=== PATIENT | male | born 1995 | race Caucasian/White ===

== ENCOUNTER → 2017-09-23 19:15 | Emergency (ER) | payer MEDICAID ==
[~2017-09-23 19:15] MED LIST: Acetaminophen TAB* 325 MG PO ONE; Ibuprofen TAB* 600 MG PO ONE
--- NOTE | 2017-09-23 20:33 | RAD ---
Indication: Pain on deep inspiration post fall. Comparison: December 19, 2010 Technique: PA chest and 6 dedicated bilateral rib views. Report: Negative for rib fracture, pulmonary contusion, pleural effusion, or pneumothorax. The heart, pulmonary vasculature, and mediastinal contours are unremarkable. IMPRESSION: Negative exam.
--- NOTE | 2017-09-23 21:09 | ED ---
Adult Trauma - HPI Summary HPI Summary: Complains of right side chest wall pain, right upper arm pain S/P arrest this evening. Patient was running from [facility] and fell, with subsequent contact when vice squad police officer engaged and arrested patient. Denies head injury, LOC, facial trauma or neck pain, back pain, bilateral lower extremity pain, left upper extremity pain, abdominal pain, SOB. Ankle history of anxiety. - History of Current Complaint Chief Complaint: EDFlankPain Stated Complaint: FLANK PAIN Time Seen by Provider: 09/23/17 19:32 Hx Obtained From: Patient Mechanism of Injury: Blunt Trauma, Fall Ambulatory at the Scene: Yes Loss of Consciousness: no loss of consciousness Pain Intensity: 5 - Allergy/Home Medications Allergies/Adverse Reactions: Allergies Allergy/AdvReac Type Severity Reaction Status Date / Time MS Penicillins [Penicillins] Allergy Intermediate Rash Unverified 09/27/13 02:16 PMH/Surg Hx/FS Hx/Imm Hx Endocrine/Hematology History: Denies: Hx Diabetes, Hx Thyroid Disease Cardiovascular History: Denies: Hx Hypertension Respiratory History: Denies: Hx Asthma, Hx Chronic Obstructive Pulmonary Disease (COPD) GI History: Denies: Hx Ulcer Sensory History: Reports: Hx Contacts or Glasses Denies: Hx Hearing Aid Opthamlomology History: Reports: Hx Contacts or Glasses Psychiatric History: Reports: Hx Depression - ON MEDS - Surgical History Surgery Procedure, Year, and Place: RIGHT KNEE, 2008, [facility] Hx Anesthesia Reactions: No Infectious Disease History: No Infectious Disease History: Denies: Hx Clostridium Difficile, Hx Hepatitis, Hx Human Immunodeficiency Virus (HIV), Hx of Known/Suspected MRSA, Hx Shingles, Hx Tuberculosis, Hx Known/ Suspected VRE, Hx Known/Suspected VRSA, History Other Infectious Disease, Traveled Outside the [place] in Last 30 Days - Family History Known Family History: Positive: Hypertension - Social History Alcohol Use: None Substance Use Type: Reports: None Substance Use Comment - Amount & Last Used: " I do all of them" Smoking Status (MU): Heavy Every Day Tobacco Smoker Type: Cigarettes Amount Used/How Often: 1 PPD Length of Time of Smoking/Using Tobacco: 5+ years Have You Smoked in the Last Year: Yes Review of Systems Constitutional: Negative Eyes: Negative ENT: Negative Cardiovascular: Negative Respiratory: Negative Gastrointestinal: Negative Genitourinary: Negative Musculoskeletal: Negative Skin: Negative Neurological: Negative Psychological: Normal All Other Systems Reviewed And Are Negative: Yes Physical Exam - Summary Physical Exam Summary: No evidence of ecchymosis, deformity, swelling to right side chest wall or right flank or right upper arm. Patient is handcuffed but moves right arm freely. No evidence of trauma to face, head, teeth, tongue full range of motion of neck and jaw. Triage Information Reviewed: Yes Vital Signs On Initial Exam: Initial Vitals Temp Pulse Resp BP Pulse Ox 98.6 F 110 18 132/89 95 09/23/17 20:41 09/23/17 20:41 09/23/17 20:41 09/23/17 20:41 09/23/17 20:41 Vital Signs Reviewed: Yes Appearance: Positive: Well-Appearing Skin: Positive: Warm Head/Face: Positive: Normal Head/Face Inspection Eyes: Positive: Normal Neck: Positive: Supple Respiratory/Lung Sounds: Positive: Clear to Auscultation Cardiovascular: Positive: Normal Abdomen Description: Positive: Nontender Musculoskeletal: Positive: Normal Neurological: Positive: Normal Psychiatric: Positive: Normal AVPU Assessment: Alert - [place] Coma Scale Best Eye Response: 4 - Spontaneous Best Motor Response: 6 - Obeys Commands Best Verbal Response: 5 - Oriented Coma Scale Total: 15 Diagnostics - Vital Signs Vital Signs Temp Pulse Resp BP Pulse Ox 09/23/17 20:41 98.6 F 110 18 132/89 95 - Laboratory Lab Statement: Any lab studies that have been ordered have been reviewed, and results considered in the medical decision making process. - Radiology ribs/chest Xray Interpretation: No Acute Changes Radiology Interpretation Completed By: Radiologist Adult Trauma Course/Dx - Diagnoses Provider Diagnoses: Rib pain on right side, Right upper limb pain Discharge - Sign-Out/Discharge Documenting (check all that apply): Discharge/Admit/Transfer - Discharge Plan Condition: Stable Disposition: LAW ENFORCEMENT/COURT Patient Education Materials: Musculoskeletal Pain (ED), Chest Wall Pain (ED) Referrals: No Primary Care Phys,NOPCP [Primary Care Provider] - Additional Instructions: Follow-up with primary care. Return to the ED for any new or worsening symptoms - Billing Disposition and Condition Condition: STABLE Disposition: LAW
[2017-09-23 22:09] VITALS: BP 133/103
== END ==
LOC: ED 19:15
DX: R07.81 Pleurodynia (principal); M79.621 Pain in right upper arm; F32.9 Major depressive disorder, single episode, unspecified; Z88.0 Allergy status to penicillin; F17.210 Nicotine dependence, cigarettes, uncomplicated
CPT/HCPCS: 71111; 99282; A9270-GY

== ENCOUNTER 2018-05-26 18:31 | Emergency (ER) | payer OTHER ==
[2018-05-26 18:44] VITALS: BP 127/73
--- NOTE | 2018-05-26 18:45 | UC ---
Skin Complaint HPI - HPI Summary HPI Summary: 22 yo male presents with left lower jaw/left neck complaints. He tells me that he is an IV drug user, as well as many other illicit substances. He is planned to go to rehab in [place] tomorrow morning. Yesterday he began to have swelling and pain in his left lower jaw. He took a needle and poked it and drained "thick white and yellow shit" and "crystals". Today the swelling has spread and redness is going down his neck. His mom had po amoxicillin at home so he took two tablets of this and came to . He is able to eat and drink. Denies fever. - History of Current Complaint Chief Complaint: [facility] Time Seen by Provider: 05/26/18 18:44 Stated Complaint: SOFT TISSUE Hx Obtained From: Patient Onset Severity: Severe Current Severity: Severe Pain Intensity: 8 Pain Scale Used: 0-10 Numeric - Allergy/Home Medications Allergies/Adverse Reactions: Allergies Allergy/AdvReac Type Severity Reaction Status Date / Time No Known Allergies Allergy Verified 05/26/18 19:56 Home Medications: Home Medications NK [No Home Medications Reported] 05/26/18 [History Confirmed 05/26/18] PMH/Surg Hx/FS Hx/Imm Hx - Additional Past Medical History Additional PMH: None - Surgical History Surgical History: Yes Surgery Procedure, Year, and Place: RIGHT KNEE, 2008, [facility]. nasal surgery - Family History Known Family History: Positive: Hypertension - Social History Alcohol Use: None Substance Use Type: Cocaine, Heroin, Marijuana, Synthetic Drugs, Prescribed Substance Use Comment - Amount & Last Used: Xanax, Meth, mushrooms Smoking Status (MU): Heavy Every Day Tobacco Smoker Type: Cigarettes Amount Used/How Often: 1 PPD Length of Time of Smoking/Using Tobacco: 5+ years Have You Smoked in the Last Year: Yes - Immunization History Most Recent Influenza Vaccination: none Most Recent Pneumonia Vaccination: none Review of Systems All Other Systems Reviewed And Are Negative: Yes Constitutional: Positive: Negative Skin: Positive: Other - Abscess left jaw Respiratory: Positive: Negative Cardiovascular: Positive: Negative Neurovascular: Positive: Negative Neurological: Positive: Negative Psychological: Positive: Negative Physical Exam - Summary Physical Exam Summary: GENERAL: NAD. WDWN. No pain distress. SKIN: LEFT lower jaw: Moderate edema with erythema and warmth. Erythema extending down left neck to clavicle. Moderate TTP. CHEST: No accessory muscle use. Breathing comfortably and in no distress. CV: Pulses intact. Cap refill <2seconds NEURO: Alert. PSYCH: Age appropriate behavior. Triage Information Reviewed: Yes Vital Signs: Initial Vital Signs Temp 97.9 F 05/26/18 18:40 Pulse 92 05/26/18 18:40 Resp 18 05/26/18 18:40 BP 127/73 05/26/18 18:40 Pulse Ox 99 05/26/18 18:40 Vital Signs Reviewed: Yes Course/Dx - Course Course Of Treatment: Given his IV drug use and rapid progression of symptoms - recommend pt be further evaluated in the ED as I suspect he will need imaging and/or IV antibiotics with possible I&D. He was agreeable to this and mom will drive him. - Diagnoses Provider Diagnosis: Abscess of left jaw Discharge - Sign-Out/Discharge Documenting (check all that apply): Patient Departure All imaging exams completed and their final reports reviewed: No Studies - Discharge Plan Condition: Stable Disposition: HOME-RECOMMEND TO ED Referrals: No Primary Care Phys,NOPCP [Primary Care Provider] - Additional Instructions: Please go to the ER for further evaluation of your abscess - Billing Disposition and Condition Condition: STABLE Disposition: Home-Recommend to ED - Attestation Statements Provider Attestation: Per institutional requirements, I have reviewed the chart, however, I was not consulted specifically or made aware of this patient by the midlevel provider. I did not personally evaluate, interact with , or disposition this patient.
--- OUTSIDE RECORDS SUMMARY | 2018-05-26 18:59 | XMS REPORT | Continuity of Care Document ---
:1995 External Reference #:[id number] Author Name Gopi Bentley, OD Address [address] [place] [address] Care Team Providers Name Role Phone Lisha De Souza MD Care Team Information Garment Supervisor Unavailable Lisha De Souza MD Primary Care Physician Unavailable Payers Type Date Identification Numbers Payment Provider Subscriber Policy Number: [id number] [facility] Ziyad Bautista PayID: [id number] [address] [place] [address] Advance Directives Description No Information Available Problems Description No Information Family History Date Family Member(s) Problem(s) Comments General Glasses General Diabetes General Heart Disease Father Glasses Mother Heart Disease Mother Glasses Social History Type Date Description Comments Sex Unknown ETOH Use Occasionally consumes alcohol Tobacco Use Start: Unknown Heavy tobacco smoker (more than 10 cigarettes/day) Smoking Status Reviewed: 05/06/18 Heavy tobacco smoker (more than 10 cigarettes/day) Allergies, Adverse Reactions, Alerts Description No Known Drug Allergies Medications Medication Date Status Form Strength Qnty SIG Indications Ordering Provider Gabapentin 0 Active Tablets 600mg Take 1 Unknown 000 Tablet By Mouth Three Times Daily Suboxone Active Film 8-2mg Unknown 000 Methylphenidate Active Tablets 36mg Unknown Hydrochloride ER 000 ER 24HR Mirtazapine 0 Active Tablets 15mg Unknown 000 Ropinirole HCL 0 Active Tablets 1mg Unknown 000 Divalproex Sodium 0 Active Tablets 500mg Unknown [address] Immunizations Description No Information Available Vital Signs Date Vital Result Comment 05/06/2018 2:52pm Intraocular Pressure Right Eye 16 mmHg Intraocular Pressure Left Eye 16 mmHg Results Description No Information Available Procedures Date Code Description Status 05/06/2018 35350 Refraction Completed 05/06/2018 33055 Eye Exam New Comprehensive Completed Encounters Description No Information Available Plan of Treatment 05/06/2018 - Gopi Bentley, ODH52.223 Regular astigmatism, bilateralFollow up: yearly full, sooner PRNS00.11xA Contusion of right eyelid and periocular area, init encntrFollow up:yearly full, sooner PRN
== END 2018-05-26 19:05 | disposition home health service (06) ==
LOC: UCEAST 18:31
DX: M27.2 Inflammatory conditions of jaws (principal); F17.210 Nicotine dependence, cigarettes, uncomplicated
CPT/HCPCS: 99202; G0463

== ENCOUNTER 2018-05-26 19:49 | Inpatient (IN) | payer OTHER ==
[2018-05-26] MEDS ORDERED: Vancomycin(*) 1,000 MG in NS 0.9% 250 ML* 250 ML IVPB ONE (20:30)
[2018-05-26] MEDS ORDERED: Piperacillin/Tazobac ADVAN(*) 3.375 GM in NS 0.9% 100 ML* 100 ML IVPB ONE (20:30)
--- NOTE | 2018-05-26 20:34 | ED ---
Skin Complaint - HPI Summary HPI Summary: This patient is a 22 year old M [facility] a jaw abscess to the left jaw line that began yesterday. He states he believe it is from crystal meth use and believes he has squeezed crystal meth from the lump. The patient rates the pain 8/10 in severity. Patient denies fever. Pt states he does intravenously use meth and heroin but states he only injects into AC fossa. He did drain it himself and states there was thick yellow discharge. He states he has detox in the am and cannot be admitted. - History of Current Complaint Chief Complaint: EDRashSkinAbscess Time Seen by Provider: 05/26/18 20:07 Stated Complaint: FACIAL SWELLING Hx Obtained From: Patient Onset/Duration: Started Days Ago, Still Present Timing: Constant Onset Severity: Moderate Current Severity: Moderate Pain Intensity: 8 Pain Scale Used: 0-10 Numeric Skin Location: Face Character: Pain, Redness, Painful Associated Signs & Symptoms: Negative - fever - Additional Pertinent History [facility] Physician[facility] - Allergy/Home Medications Allergies/Adverse Reactions: Allergies Allergy/AdvReac Type Severity Reaction Status Date / Time No Known Allergies Allergy Verified 05/26/18 19:56 PMH/Surg Hx/FS Hx/Imm Hx Endocrine/Hematology History: Denies: Hx Diabetes, Hx Thyroid Disease Cardiovascular History: Denies: Hx Hypertension Respiratory History: Denies: Hx Asthma, Hx Chronic Obstructive Pulmonary Disease (COPD) GI History: Denies: Hx Ulcer Sensory History: Reports: Hx Contacts or Glasses Denies: Hx Hearing Aid Opthamlomology History: Reports: Hx Contacts or Glasses Neurological History: Reports: Other Neuro Impairments/Disorders - hx multiple concussions Psychiatric History: Reports: Hx Anxiety, Hx Attention Deficit Hyperactivity Disorder, Hx Community Mental Health Tx, Hx of Violent Episodes Against Others, Hx Substance Abuse Denies: Hx Eating Disorder, Hx Depression, Hx Panic Disorder, Hx Post Traumatic Stress Disorder, Hx Inpatient Treatment, Hx Schizophrenia, Hx Bipolar Disorder, Hx Suicide Attempt - Surgical History Surgery Procedure, Year, and Place: RIGHT KNEE, 2008, [facility]. nasal surgery Hx Anesthesia Reactions: No Infectious Disease History: No Infectious Disease History: Reports: Hx Hepatitis Denies: Hx Clostridium Difficile, Hx Human Immunodeficiency Virus (HIV), Hx of Known/Suspected MRSA, Hx Shingles, Hx Tuberculosis, Hx Known/Suspected VRE, Hx Known/Suspected VRSA, History Other Infectious Disease, Traveled Outside the [place] in Last 30 Days - Family History Known Family History: Positive: Hypertension - Social History Alcohol Use: None Substance Use Type: Reports: Cocaine, Heroin, Marijuana, Synthetic Drugs, Prescribed Substance Use Comment - Amount & Last Used: Xanax, Meth, mushrooms Smoking Status (MU): Heavy Every Day Tobacco Smoker Type: Cigarettes Amount Used/How Often: 1 PPD Length of Time of Smoking/Using Tobacco: 5+ years Have You Smoked in the Last Year: Yes Review of Systems Negative: Fever Positive: Other - swelling, redness, raised area on the left jaw All Other Systems Reviewed And Are Negative: Yes Physical Exam - Summary Physical Exam Summary: VITAL SIGNS: Reviewed. GENERAL: Patient is a well-developed and nourished male who is lying comfortable in the stretcher. Patient is not in any acute respiratory distress. HEAD AND FACE: No signs of trauma. No ecchymosis, hematomas or skull depressions. No sinus tenderness. EYES: PERRLA, EOMI x 2, No injected conjunctiva, no nystagmus. EARS: Hearing grossly intact. Ear canals and tympanic membranes are within normal limits. MOUTH: Oropharynx within normal limits. NECK: Supple, trachea is midline, no adenopathy, no JVD, no carotid bruit, no c- spine tenderness, neck with full ROM. CHEST: Symmetric, no tenderness at palpation LUNGS: Clear to auscultation bilaterally. No wheezing or crackles. CVS: Regular rate and rhythm, S1 and S2 present, no murmurs or gallops appreciated. ABDOMEN: Soft, non-tender. No signs of distention. No rebound no guarding, and no masses palpated. Bowel sounds are normal. EXTREMITIES: FROM in all major joints, no edema, no cyanosis or clubbing. NEURO: Alert and oriented x 3. No acute neurological deficits. Speech is normal and follows commands. SKIN: there is a large area of swelling and induration that is TTP and warm on the left cheek. There is redness that extends into the neck. He has many scattered superficial ulcerations Triage Information Reviewed: Yes Vital Signs On Initial Exam: Initial Vitals Temp Pulse Resp BP Pulse Ox 99.1 F 105 16 115/95 100 05/26/18 19:54 05/26/18 19:54 05/26/18 19:54 05/26/18 19:54 05/26/18 19:54 Vital Signs Reviewed: Yes Diagnostics - Vital Signs Vital Signs Temp Pulse Resp BP Pulse Ox 05/26/18 19:54 99.1 F 105 16 115/95 100 - Laboratory Result Diagrams: 05/26/18 21:17 05/26/18 21:17 Lab Statement: Any lab studies that have been ordered have been reviewed, and results considered in the medical decision making process. - CT CT Maxillofacial CT Interpretation Completed By: Radiologist Summary of CT Findings: prominent left soft tissue facial swelling, consistent with cellulitis. No soft tissue or periodontal abscess identified. Dr. Douglas has reviewed this report. Course/Dx - Course Course Of Treatment: This patient is a 22 year old M presenting to [facility] c/o a jaw abscess to the left jaw line that began yesterday. He states he believe it is from crystal meth use and believes he has squeezed crystal meth from the lump. The patient rates the pain 8/10 in severity. Patient denies fever. Pt states he does intravenously use meth and heroin but states he only injects into AC fossa. He did drain it himself and states there was thick yellow discharge. He states he has detox in the am and cannot be admitted. Assessment/Plan: CT maxillofacial reveals, prominent left soft tissue facial swelling, consistent with cellulitis. No soft tissue or periodontal abscess identified. The patient was given toradol for pain and IV antibiotics Bloodwork was obtained. Dr saeed, hospitalist was contacted and he accepted the patient for admission. The patient is agreeable - Diagnoses Provider Diagnoses: Substance abuse, Facial cellulitis - Physician Notifications Discussed Care Of Patient With: Ramy Saeed Time Discussed With Above Provider: 23:11 Instructed by Provider To: Admit As Inpatient Discharge - Sign-Out/Discharge Documenting (check all that apply): Patient Departure - admitted - Discharge Plan Condition: Fair Disposition: ADMITTED TO [facility] Referrals: No Primary Care Phys,NOPCP [Primary Care Provider] - - Attestation Statements Document Initiated by Scribe: Yes Documenting Scribe: John Hernandez Provider For Whom Scribe is Documenting (Include Credential): Kyung Douglas MD Scribe Attestation: John Amaya , scribed for Kyung Douglas MD on 01/08/19 at 2311. Status of Scribe Document: Ready
[2018-05-26] MEDS: NS 0.9% 1000 ML*IV.FLUID IV ONE (21:07)
[2018-05-26 21:32] LABS: ABS Basophils 0 10^3/ul (0-0.2); ABS Eosinophils 0.3 10^3/ul (0-0.6); ABS Lymphocytes 2.7 10^3/ul (1.0-4.8); ABS Monocytes 0.9 10^3/ul (0-0.8); ABS Neutrophils 9.8 10^3/ul (1.5-7.7); ABS Nucleated RBC 0 10^3/ul; Eosinophil % 2.4 %; Hematocrit 41 % (42-52); Hemoglobin 13.7 g/dl (14.0-18.0); Lymphocyte % 19.8 %; Mean Corpuscular HGB Conc 34 g/dl (31-36); Mean Corpuscular Hemoglobin 30 pg (27-31); Mean Corpuscular Volume 90 fL (80-94); Mean Platelet Volume 6.8 fL (7.4-10.4); Nucleated Red Blood Cells % 0; Platelet Count 263 10^3/ul (150-450); Red Blood Count 4.53 10^6/ul (4.00-5.40); Red Cell Distribution Width 13 % (10.5-15); White Blood Count 13.9 10^3/ul (3.5-10.8)
[2018-05-26 21:43] LABS: Albumin 4.1 g/dL (3.2-5.2); Albumin/Globulin Ratio 1.8 (1-3); BUN/Creatinine Ratio 17.7 (8-20); C Reactive Protein 82.74 mg/L (<8.01); Calcium 9.4 mg/dL (8.6-10.3); EGFR Non-African American 79.7 (>60); Globulin 2.3 g/dL (2-4); Potassium 4.1 mmol/L (3.5-5.0); Total Bilirubin 0.5 mg/dL (0.2-1.0); Total Protein 6.4 g/dL (6.4-8.9)
[2018-05-26 22:02] LABS: Activated Partial Thrombo Time 29.6 seconds (26.0-36.3); INR 0.98 (0.77-1.02)
[2018-05-26] MEDS ORDERED: Iohexol 300* (CONTRAST) 10 ML SDV IV ONE (22:03)
[2018-05-26] MEDS ORDERED: Ketorolac INJ* 30 MG/ML 1 ML VIAL IV PUSH ONE (22:25)
[2018-05-26] MEDS ORDERED: Vancomycin(*) 0 MG in NS 0.9% 250 ML* 250 ML IVPB SCH (23:45)
[2018-05-26] MEDS ORDERED: Zosyn per Pharmacy* NOTE FOLLOW UP SCH (23:45)
[2018-05-27] MEDS ORDERED: Vancomycin per Pharmacy* NOTE FOLLOW UP PRN (00:23)
[2018-05-27] MEDS: NS 0.9% 1000 ML*IV.FLUID IV ONE (00:43)
[2018-05-27] MEDS: Divalproex ER TAB(*) 500 MG PO SCH ×3 (01:33→21:00)
[2018-05-27] MEDS: Nicotine PATCH 7 MG/24 HR* PATCH TRANSDERM SCH ×2 (01:34→01:36)
[2018-05-27] MEDS: ZOSYN 3.375 GM Q8H per EXTENDED INFUSION IVPB SCH ×6 (01:34→18:25)
[2018-05-27] MEDS: NS 0.9% 1000 ML* 1,000 ML IV SCH ×2 (01:34→11:59)
[2018-05-27] MEDS: HYDROmorphone INJ1* 1 MG/ML SYRINGE IV SLOW PU PRN ×5 (03:03→21:26)
[2018-05-27] MEDS: Vancomycin(*) 1,000 MG in NS 0.9% 250 ML* 250 ML IVPB SCH ×3 (05:52→22:58)
[2018-05-27 06:07] LABS: ABS Basophils 0.1 10^3/ul (0-0.2); ABS Eosinophils 0.4 10^3/ul (0-0.6); ABS Lymphocytes 2.5 10^3/ul (1.0-4.8); ABS Monocytes 0.9 10^3/ul (0-0.8); ABS Neutrophils 8.6 10^3/ul (1.5-7.7); ABS Nucleated RBC 0 10^3/ul; Eosinophil % 3.2 %; Hematocrit 39 % (42-52); Hemoglobin 13.5 g/dl (14.0-18.0); Lymphocyte % 19.9 %; Mean Corpuscular HGB Conc 35 g/dl (31-36); Mean Corpuscular Hemoglobin 31 pg (27-31); Mean Corpuscular Volume 88 fL (80-94); Mean Platelet Volume 7.2 fL (7.4-10.4); Nucleated Red Blood Cells % 0.1; Platelet Count 248 10^3/ul (150-450); Red Blood Count 4.39 10^6/ul (4.00-5.40); Red Cell Distribution Width 13 % (10.5-15); White Blood Count 12.4 10^3/ul (3.5-10.8)
--- NOTE | 2018-05-27 06:23 | HP ---
HISTORY AND PHYSICAL: DATE OF ADMISSION: 05/26/18 ADMITTING PROVIDER: Ramy Saeed MD. PRIMARY CARE PHYSICIAN: Dr. Angélica Williamson. CHIEF COMPLAINT: Left cheek pain and slight drainage in the setting of acute on chronic crystal meth and heroin use. HISTORY OF PRESENT ILLNESS: Ziyad Bautista is a 22-year-old male with past medical history of polysubstance abuse (opioids, cocaine, methamphetamine, heroin, cannabis, and cigarette smoking), bipolar disorder, and ADHD. He is accompanied by bedside by his girlfriend, Kurtis and mother, Juanita. He has been using heroin and crystal meth again for the last few months, has been not taking his psychiatric medications of Depakote, gabapentin nor his Suboxone. The day prior to admission, he developed left face and cheek swelling and increasing pain and morning of admission, an area lateral to the left chin at the lower aspect of the cheek opened up with some pus like drainage. Family had been planning on detoxification at [facility], but due to the poor weather that was postponed. He denies any fevers or chills. Kurtis notes that he has been using heroin about 4 to 5 times a day including last at around 5:30 p.m. and crystal meth last use was night prior. He has had a few days of diarrhea. Upon presentation to [facility] [place], he was found to have a leukocytosis of 13.9, a CRP of 82.7, temperature of 99.1, tachycardia of 105, meeting SIRS criteria and CT maxillofacial was performed which showed a prominent left facial soft tissue swelling consistent with cellulitis. No soft tissue or periodontal abscess was identified. He was referred to hospitalist service for admission for facial cellulitis and service. He is status post one dose of vancomycin and Zosyn in the ED and 2.4 L of normal saline, IV fluids. Both, the patient and the mother had concern about the risks for him withdrawing. He attests that he would leave the hospital if that were to happen as that could be "dope sick" in the hospital, would rather leave AMA if that were to occur. He states that he uses about 20 single bags or 0.5 g of heroin daily in his approximation. The patient says that his last HIV test was approximately in February 2018, it was negative. He gets his needles at the needle exchange. PAST MEDICAL HISTORY: 1. Polysubstance abuse with crystal meth, heroin, cocaine, opioids, cannabis, cigarette smoking. 2. Bipolar disease. 3. ADHD. 4. Prior hepatitis C infection, status post reported treatment. MEDICATIONS: He denies being compliant with any medications recently. His prescribed medications include most recently: 1. Gabapentin 600 mg b.i.d. 2. Remeron 15 mg daily. 3. Suboxone 8/2 b.i.d. 4. Depakote extended release 1000 mg each night along with clonidine 0.1 mg p.o. q.h.s. Again, he has not used any of these in months while returning to heroin and crystal meth. ALLERGIES: CEFTRIAXONE was listed as severe itching. He describes a pill that he takes that caused burning with swallowing, however. FAMILY HISTORY: Mother with coronary artery disease and stents. Father is healthy. SOCIAL HISTORY: Substance abuse with crystal meth and heroin currently and past use of cocaine. Marijuana and cigarette smoking currently. Denies alcohol use. Most recent rehab admission between 11/24/17 and 12/22/17 at [place], [place]. His medical surrogate is his mother, Juanita Ross. He desires to be a full code, although initially denied this. REVIEW OF SYSTEMS: Complete 14-point review of systems was negative, except as per HPI. He denies any headaches, nausea, vomiting, vision changes, or neck stiffness. He does attest to itching, had scabs all over his body. PHYSICAL EXAMINATION GENERAL APPEARANCE: Patient in no acute distress, but disheveled, initially asleep. VITAL SIGNS: Temperature 99.1, heart rate 105, respiratory rate 16, satting 100 % on room air, blood pressure 158/95. HEENT: Normocephalic and atraumatic. Pupils are equal, round, and reactive to light. Extraocular motions are intact. No scleral icterus. Moist mucous membranes. Excoriations to the bridge of the nose, lower forehead, small drainage. Ulcer at the lower left cheek, slight erythema at this but prominent swelling of the entire left cheek region. RESPIRATORY: Clear to auscultation bilaterally. No wheezing, rales or rhonchi. CARDIOVASCULAR: Regular rate and rhythm. No murmurs, rubs, or gallops. ABDOMEN: Soft, nontender, and nondistended. EXTREMITIES: Warm and well perfused with no peripheral edema. NEUROLOGIC: Cranial nerves II through XII intact. Moving all extremities. Oriented x3. SKIN: As mentioned, prominent excoriations and lesions throughout the thorax, thighs, arms, face where he has been scratching himself. LABORATORY DATA: White count 13.9, hemoglobin 13.7, hematocrit of 41, platelets 263, INR 0.98. Sodium 134, potassium 4.1, chloride 98, carbon dioxide 31, BUN 20, creatinine 1.13, CRP 82, AST 18, ALT 18, alk phos 66, albumin of 4.1. IMAGING: Maxillofacial CT demonstrated prominent left facial soft tissue swelling, consistent with cellulitis. No soft tissue or periodontal abscess identified. EKG: Normal sinus rhythm, QTc of 425, no ST elevations or depressions. Normal axis. ASSESSMENT AND PLAN: Ziyad Bautista is a 22-year-old with a past medical history and current daily heroin and crystal methamphetamine abuse of up to 0.5 g heroin daily along with bipolar, attention deficit hyperactivity disorder, presenting with two days of progressive left facial swelling and pain with concern for some facial cellulitis without identifiable abscess on maxillofacial CT scan. He has been admitted for cellulitis with need for IV broad-spectrum antibiotics. Continue the vancomycin and Zosyn. We will get the ID consult in the morning with Dr. Chille if he is available. Main challenge may be controlling his pain and risk for opioid withdrawals while he is here getting therapy. I am going to put him on 1.5 mg of Dilaudid every 2 hours but this may need to be increased, also consideration for methadone or buprenorphine, but I will wait till the morning, and I have put in a consult with Dr. Farnsworth and, if available PCP, Angélica Williamson. These have been placed in [facility], not called as it is currently midnight. For his bipolar disease, I am restarting his Depakote extended release 1000 mg q.h.s. For his attention deficit hyperactivity disorder, holding his Ritalin. He has not been on those, only got a few prescriptions per medication prescription monitoring program. He can eat a heart-healthy diet. He is a full code. We will follow up the blood cultures. Get a CBC daily. Continue the IV fluids. Being admitted to inpatient status. [id number]/CPS #: [id number] [facility]'S HOSPITALFahad
[2018-05-27] MEDS: Gabapentin CAP(*) 300 MG PO SCH ×2 (08:20→21:00)
[2018-05-27 08:51] LABS: Urine Appearance Clear; Urine Bilirubin Negative (Negative); Urine Blood Negative (Negative); Urine Color Colorless; Urine Glucose Negative (Negative); Urine Ketones Negative (Negative); Urine Nitrite Negative (Negative); Urine Protein Negative (Negative); Urine Specific Gravity 1.005 (1.010-1.030); Urine Urobilinogen Negative (Negative)
--- NOTE | 2018-05-27 12:02 | CONS ---
CONSULTATION REPORT: DATE OF CONSULT: 05/27/18 REQUESTING PHYSICIAN: Dr. Saeed. CONSULTING SERVICE: Infectious Disease. REASON FOR CONSULT: Facial cellulitis. IMPRESSION: 1. Left mandible cellulitis, possibly phlegmon. No abscess by CT. He does not have underlying dental issues that he knows of and no rotten or broken teeth on exam. CT does not show a periodontal abscess. He does have a small cutaneous wound with eschar, which he says crystal meth crystals are coming out of. 2. Injection drug use, heroin and meth, in brief remission. 3. Hepatitis C antibody positive. RECOMMENDATION: Agree with broad-spectrum antibiotics, vancomycin goal trough 10 to 15 and Zosyn. I expect he will need a couple of days of IV antibiotics and then conversion to oral therapy in the form of clindamycin assuming no culture data comes back and there does not seem to be anything now to culture. I discussed with him that what may be cellulitis and phlegmon now, could progress to abscess, which we will keep an eye on. HISTORY OF PRESENT ILLNESS: A 22-year-old man admitted with left facial pain and swelling for 2 days. He had chills and sweats at home as well. He does not remember any injury to the left chin, but does note crystal meth crystals are coming out of the small eschar that is there as well as many other pores in his body. There is some swelling, trismus, but no trouble with teeth that he has known about and no pain with the teeth. He had a CT that showed soft tissue swelling, no abscess, no periodontal abscess. His white count yesterday was 14, today it is 12. He is afebrile here, but had chills and sweats overnight. PAST MEDICAL HISTORY: 1. Hepatitis C antibody positive that he had been treated in the past. 2. Bipolar disorder. 3. ADHD. MEDICATIONS: 1. Depakote. 2. Gabapentin. 3. Nicotine patch. 4. Zosyn. 5. Vancomycin 1 g every 8 hours. ALLERGIES: No known drug allergies. FAMILY HISTORY: No recurrent infections. SOCIAL HISTORY: He lives in [place]. He uses IV heroin and methamphetamines. Has also used cocaine. REVIEW OF SYSTEMS: All negative except as noted above to 14-point review of systems. PHYSICAL EXAM: Vital Signs: Temperature 36, heart rate 80, respiratory rate 18 , blood pressure 151/70, oxygen saturation 98% on room air. In general, he is awake and not in distress. Neurologic: He is oriented x3, follows all commands. HEENT: There is no conjunctival hemorrhage. Oropharynx without thrush. There are no broken or obviously rotten teeth. No internal mandible tenderness to palpation. About the anterior left mandible externally, there is mild erythema and induration with a 4 mm eschar. No expressible fluid or fluctuance. Erythema extends down into the neck where there is no crepitus or fluctuance. He has mild trismus. Neck: No mass, crepitus, or fluctuance. Heart is regular rate and rhythm, without murmurs, rubs, or gallops. Lungs are clear to auscultation bilaterally. Abdomen: Soft, nontender, nondistended, with bowel sounds present. Skin: There is no splinter hemorrhage or diffuse rash. Musculoskeletal: There is no spine tenderness to palpation or joint synovitis. LABORATORY DATA: White blood cell count 12, hemoglobin 13, platelets 248. Creatinine 1.1, CRP 83. Please see impression and recommendations outline above, which were discussed with Naima Velázquez NP. Thank you for asking me to see Mr. Bautista in consultation. [id number]/[facility] #: [id number] YUVAL
[2018-05-27] MEDS ORDERED: Loperamide CAP* 2 MG PO PRN (14:05)
--- NOTE | 2018-05-27 14:21 | PN ---
Subjective Date of Service: 05/27/18 Interval History: Mr. Bautista is not feeling particularly well today. His mother is at the bedside. He continues to have significant pain on his left mandible and does not feel as though the Dilaudid is working well for him because of his tolerance. Ice does not help. He did have some relief after Toradol yesterday according to this mother. He is not interested in Suboxone as he has used it in the past and it caused him to be more agitated and did not help with his cravings. He does follow with a provider at [facility], though is not happy with the psychiatric care he has received there. He is open to seeing a psychiatrist here. He denies nausea, but reports diarrhea. Feels like his withdrawal symptoms are difficult to handle. Has used clonidine in the past with good results. Family History: Unchanged from Admission Social History: Unchanged from Admission Past Medical History: Unchanged from Admission Objective Active Medications: Clonidine HCl (Catapres Tab*) 0.1 mg PO Q6H [place]LIN Divalproex Sodium (Depakote Er Tab(*)) 1,000 mg PO BEDTIME [place]LIN Gabapentin (Neurontin Cap(*)) 600 mg PO BID [place] Hydromorphone HCl (Dilaudid Inj1s*) 1.5 mg IV SLOW PU Q2H PRN PAIN Piperacillin Sod/Tazobactam (Sod 3.375 gm/ Sodium Chloride) 100 mls @ 25 mls/ hr IVPB Q8H M[place] Vancomycin HCl 1,000 mg/ (Sodium Chloride) 250 mls @ 166.667 mls/hr IVPB Q8H [place] Ketorolac Tromethamine (Toradol Inj*) 15 mg IV PUSH Q6H PRN PAIN Loperamide HCl (Imodium Cap*) 2 mg PO .SEE DIRECTIONS PRN DIARRHEA Nicotine (Nicotine Patch 7 Mg/24 Hr*) 1 patch TRANSDERM DAILY [facility] Pharmacy Consult (Zosyn Per Pharmacy*) 1 note FOLLOW UP .ZOSYN PER PHARMACY [facility] Pharmacy Consult (Vancomycin Per Pharmacy*) 1 note FOLLOW UP Pharmacy Profile Note (Nicotine Patch Removal Note*) 1 note FOLLOW UP [facility]100 [facility] Pharmacy Profile Note (Vancomycin Trough Check) 1 note FOLLOW UP 0530 [facility] Vital Signs - 8 hr 05/27/18 05/27/18 05/27/18 07:48 08:00 08:12 Temperature 97.6 F Pulse Rate 80 Respiratory 18 17 17 Rate Blood Pressure 151/70 (mmHg) O2 Sat by Pulse 98 98 Oximetry Oxygen Devices in Use Now: None Appearance: Young adult male laying in bed in NAD; Withdrawn and aloof Eyes: No Scleral Icterus Ears/Nose/Mouth/Throat: Mucous Membranes Moist Neck: NL Appearance and Movements; NL JVP, Trachea Midline Respiratory: Symmetrical Chest Expansion and Respiratory Effort, Clear to Auscultation Cardiovascular: NL Sounds; No Murmurs; No JVD, RRR Abdominal: NL Sounds; No Tenderness; No Distention Extremities: No Edema Skin: - - Edema and erythema to left mandible with small area of eschar in the center Neurological: Alert and Oriented x 3 Lines/Tubes/Other Access: Clean, Dry and Intact Peripheral IV Nutrition: Taking PO's Result Diagrams: 05/27/18 05:11 05/26/18 21:17 Assess/Plan/Problems-Billing Assessment: Mr. Bautista is a 22 yo male with PMH of polysubstance abuse (including heroin and crystal meth), hepatitis C, bipolar, and ADHD; presented to the ED with c/o left cheek pain and drainage and was found to have cellulitis w/o abscess. - Patient Problems (1) Cellulitis of face Code(s): L03.211 - CELLULITIS OF FACE Comment: - Significant erythema and edema to left mandible with small area of eschar; no drainage to culture - CT shows cellulitis, but no evidence of abscess - Blood cultures pending - Appreciate ID consult; recommends continuing current abx and switching over to clindamycin at d/c - Continue Dilaudid for pain management; will add Toradol (4 doses total) - Continue vanco and Zosyn; trend BMP daily to monitor renal function (2) Polysubstance abuse Code(s): F19.10 - OTHER PSYCHOACTIVE SUBSTANCE ABUSE, UNCOMPLICATED Comment: - Uses crystal meth, heroin, cocaine, opioids, cannabis, tobacco - Already a patient of [facility] - Has been on Suboxone in the past and is not interested in restarting; he feels as though it caused agitation and did not help with cravings - Start clonidine and imodium for withdrawal symptom management (3) Bipolar disorder, unspecified Code(s): F31.9 - BIPOLAR DISORDER, UNSPECIFIED Comment: - Was previously on Depakote, but stopped when he started using again; he did not feel as though this was effective and was not happy with previous psychiatric care at [facility] - Appreciate Psych consult for medication management (4) ADHD Comment: - Has been on Ritalin in the past, but not recently according to iSTOP - Supportive care only (5) Hepatitis C Comment: - Reports that viral load was previously undetectable - Hepatitis panel and HIV pending (6) DVT prophylaxis Comment: - Ambulation (7) Full code status Code(s): Z78.9 - OTHER SPECIFIED HEALTH STATUS Comment: Status and Disposition: Inpatient for IV antibiotics. Social work consult for substance abuse. Anticipate d/c home when medically stable, possibly 2-3 more days. Attending: Anel Khan
[2018-05-27] MEDS ORDERED: HYDROmorphone TAB* 4 MG PO ONE (14:50)
[2018-05-27] MEDS ORDERED: HYDROmorphone TAB* 4 MG ONE (14:55)
[2018-05-27] MEDS: cloNIDine TAB* 0.1 MG PO SCH ×2 (14:58→21:35)
[2018-05-27] MEDS ORDERED: cloNIDine TAB* 0.1 MG PO SCH (15:00)
[2018-05-27] MEDS: Ketorolac INJ* 15 MG/ML 1 ML VIAL IV PUSH PRN (18:25)
[2018-05-27] MEDS: Nicotine Patch Removal NOTE FOLLOW UP SCH (21:00)
[2018-05-28] MEDS: HYDROmorphone INJ1* 1 MG/ML SYRINGE IV SLOW PU PRN ×5 (00:24→20:10)
[2018-05-28] MEDS: ZOSYN 3.375 GM Q8H per EXTENDED INFUSION IVPB SCH ×6 (00:54→16:41)
[2018-05-28] MEDS: Ketorolac INJ* 15 MG/ML 1 ML VIAL IV PUSH PRN (02:10)
[2018-05-28] MEDS: cloNIDine TAB* 0.1 MG PO SCH ×4 (03:16→20:10)
[2018-05-28] MEDS ORDERED: Vancomycin Trough Check NOTE FOLLOW UP ONE (05:30)
[2018-05-28 06:11] LABS: ABS Basophils 0.1 10^3/ul (0-0.2); ABS Eosinophils 0.2 10^3/ul (0-0.6); ABS Lymphocytes 1.8 10^3/ul (1.0-4.8); ABS Monocytes 0.3 10^3/ul (0-0.8); ABS Neutrophils 7.1 10^3/ul (1.5-7.7); ABS Nucleated RBC 0 10^3/ul; Eosinophil % 2.5 %; Hematocrit 43 % (42-52); Hemoglobin 14.8 g/dl (14.0-18.0); Lymphocyte % 18.5 %; Mean Corpuscular HGB Conc 35 g/dl (31-36); Mean Corpuscular Hemoglobin 31 pg (27-31); Mean Corpuscular Volume 89 fL (80-94); Mean Platelet Volume 6.8 fL (7.4-10.4); Nucleated Red Blood Cells % 0; Platelet Count 282 10^3/ul (150-450); Red Blood Count 4.84 10^6/ul (4.00-5.40); Red Cell Distribution Width 13 % (10.5-15); White Blood Count 9.5 10^3/ul (3.5-10.8)
[2018-05-28 06:28] LABS: BUN/Creatinine Ratio 6.1 (8-20); Calcium 9.2 mg/dL (8.6-10.3); EGFR Non-African American 115.4 (>60); Potassium 3.9 mmol/L (3.5-5.0)
[2018-05-28 06:34] LABS: Vancomycin Trough 8.4 mcg/mL
[2018-05-28] MEDS: Vancomycin(*) 1,000 MG in NS 0.9% 250 ML* 250 ML IVPB SCH ×3 (06:45→21:27)
[2018-05-28] MEDS ORDERED: Acetaminophen TAB* 325 MG PO PRN (08:44)
[2018-05-28] MEDS ORDERED: Ondansetron INJ* 2 MG/ML VIAL IV PRN (08:44)
[2018-05-28] MEDS: Gabapentin CAP(*) 300 MG PO SCH (08:59)
[2018-05-28] MEDS: Nicotine PATCH 7 MG/24 HR* PATCH TRANSDERM SCH (08:59)
[2018-05-28 10:59] LABS: Hepatitis B Surface Antigen Nonreactive (Nonreactive)
[2018-05-28 11:25] LABS: Hepatitis C Antibody High Reactive (Nonreactive)
--- NOTE | 2018-05-28 12:21 | PN ---
Subjective Date of Service: 05/28/18 Interval History: Patient is feeling somewhat better today. Rates pain in face at 7/10. Patient states his ability to chew and his jaw pain is improving somewhat. Patient has persistent diarrhea with 6-10 BMs daily but no abdominal pain. Patient denies F/ C, CP, SOB, dysuria, dizziness on standing, blood in stool, or other pain. Family History: Unchanged from Admission Social History: Unchanged from Admission Past Medical History: Unchanged from Admission Objective Active Medications: Acetaminophen (Tylenol Tab*) 650 mg PO Q6H PRN PRN Reason: FEVER/PAIN Clonidine HCl (Catapres Tab*) 0.1 mg PO Q6H [place] Last Admin: 05/28/18 08:42 Dose: 0.1 mg Divalproex Sodium (Depakote Er Tab(*)) 1,000 mg PO BEDTIME [place] Last Admin: 05/27/18 21:00 Dose: Not Given Gabapentin (Neurontin Cap(*)) 600 mg PO BID [facility] Last Admin: 05/28/18 08:59 Dose: Not Given Heparin Sodium (Porcine) (Heparin Flush Picc/Ml/Cvc(*)) 1 ml FLUSH 0600,1800 [facility]; Protocol Last Admin: 05/28/18 06:03 Dose: Not Given Hydromorphone HCl (Dilaudid Inj1s*) 1.5 mg IV SLOW PU Q2H PRN PRN Reason: PAIN Last Admin: 05/28/18 08:42 Dose: 1.5 mg Piperacillin Sod/Tazobactam (Sod 3.375 gm/ Sodium Chloride) 100 mls @ 25 mls/ hr IVPB Q8H [place] Last Admin: 05/28/18 08:42 Dose: 25 mls/hr Vancomycin HCl 1,000 mg/ (Sodium Chloride) 250 mls @ 166.667 mls/hr IVPB Q8H [place] Last Admin: 05/28/18 06:45 Dose: 166.667 mls/hr Ketorolac Tromethamine (Toradol Inj*) 15 mg IV PUSH Q6H PRN PRN Reason: PAIN Last Admin: 05/28/18 02:10 Dose: 15 mg Lactobacillus Rhamnosus (Lactobacillus Acidophilus*) 1 tab PO BID [place] Loperamide HCl (Imodium Cap*) 2 mg PO .SEE DIRECTIONS PRN PRN Reason: DIARRHEA Nicotine (Nicotine Patch 7 Mg/24 Hr*) 1 patch TRANSDERM DAILY [facility] Last Admin: 05/28/18 08:59 Dose: Not Given Ondansetron HCl (Zofran Inj*) 4 mg IV Q6H PRN PRN Reason: NAUSEA Pharmacy Consult (Zosyn Per Pharmacy*) 1 note FOLLOW UP .ZOSYN PER PHARMACY [facility] Pharmacy Consult (Vancomycin Per Pharmacy*) 1 note FOLLOW UP . PRN PRN Reason: PER PROTOCOL Pharmacy Profile Note (Nicotine Patch Removal Note*) 1 note FOLLOW UP [address] [facility] Last Admin: 05/27/18 21:00 Dose: Not Given Vital Signs - 8 hr 05/28/18 05/28/18 05/28/18 07:21 08:42 09:42 Temperature Pulse Rate 70 Respiratory 16 16 16 Rate Blood Pressure 131/60 (mmHg) O2 Sat by Pulse 99 Oximetry 05/28/18 11:11 Temperature 98.7 F Pulse Rate 50 Respiratory 16 Rate Blood Pressure 125/65 (mmHg) O2 Sat by Pulse 100 Oximetry Oxygen Devices in Use Now: None Appearance: Patient is a 22yo male who appears stated age and is sitting in the bed in [facility]. Eyes: No Scleral Icterus, PERRLA Ears/Nose/Mouth/Throat: NL Teeth, Lips, Gums, Clear Oropharnyx Neck: NL Appearance and Movements; NL JVP, Trachea Midline Respiratory: Symmetrical Chest Expansion and Respiratory Effort, Clear to Auscultation Cardiovascular: NL Sounds; No Murmurs; No JVD, RRR, No Edema Abdominal: NL Sounds; No Tenderness; No Distention, No Hepatosplenomegaly Lymphatic: No Cervical Adenopathy Extremities: No Edema, No Clubbing, Cyanosis Skin: - - Left face cellulitis with eschar and erythema. Scattered scabs on remainder of body without other evidence of cellulitis. Neurological: Alert and Oriented x 3, NL Sensation, NL Muscle Strength and Tone Result Diagrams: 05/28/18 06:00 05/28/18 06:00 Microbiology and Other Data: Microbiology 05/26/18 21:04 Aerobic Blood Culture - Preliminary Blood Venous No Growth Day 1 Anaerobic Blood Culture - Preliminary No Growth Day 1 05/26/18 21:01 Aerobic Blood Culture - Preliminary Blood Venous No Growth Day 1 Anaerobic Blood Culture - Preliminary No Growth Day 1 Assess/Plan/Problems-Billing Assessment: Mr. Bautista is a 22 yo male with PMH of polysubstance abuse (including heroin and crystal meth), hepatitis C, bipolar, and ADHD; presented to the ED with c/o left cheek pain and drainage and was found to have cellulitis w/o abscess. - Patient Problems (1) Cellulitis of face Current Visit: Yes Status: Acute Code(s): L03.211 - CELLULITIS OF FACE SNOMED Code(s): 713874313 Comment: - Significant erythema and edema to left mandible with small area of eschar; no drainage to culture - CT shows cellulitis, but no evidence of abscess. Possible Phlegmon. - Blood cultures negative at this time. - Appreciate ID consult; recommends continuing current abx and switching over to clindamycin at d/c - Continue Dilaudid for pain management; will add Toradol (4 doses total) - Pain is improving. - Continue vanco and Zosyn; trend BMP daily to monitor renal function (2) Bipolar disorder, unspecified Current Visit: Yes Status: Acute Priority: Medium Code(s): F31.9 - BIPOLAR DISORDER, UNSPECIFIED SNOMED Code(s): 19956709 Comment: - Was previously on Depakote, but stopped when he started using again; he did not feel as though this was effective and was not happy with previous psychiatric care at [facility] - Appreciate Psych consult - Start Quetiapine 50 BID - No signs of ion at this time. (3) Hepatitis C Current Visit: Yes Status: Acute Comment: - Reports that viral load was previously undetectable after treatment. - Hepatitis C Antibody positive, will confirm with viral load. (4) Polysubstance abuse Current Visit: Yes Status: Acute Code(s): F19.10 - OTHER PSYCHOACTIVE SUBSTANCE ABUSE, UNCOMPLICATED SNOMED Code(s): 931614324 Comment: - Uses crystal meth, heroin, cocaine, opioids, cannabis, tobacco - Already a patient of [facility] - Has been on Suboxone in the past and is not interested in restarting; he feels as though it caused agitation and did not help with cravings - Start clonidine and imodium for withdrawal symptom management - Pain managment consult pending. Possible candidate for Methadone therapy. (5) ADHD Current Visit: Yes Status: Acute Comment: - Has been on Ritalin in the past, but not recently according to iSTOP - Supportive care only (6) Full code status Current Visit: Yes Status: Acute Code(s): Z78.9 - OTHER SPECIFIED HEALTH STATUS SNOMED Code(s): 948493667 Comment: (7) DVT prophylaxis Current Visit: Yes Status: Acute Code(s): YOB8420 - SNOMED Code(s): 347338994 Comment: - Ambulation Status and Disposition: Inpatient for IV antibiotics. Social work consult for substance abuse. Anticipate d/c home when medically stable, possibly 1-2 more days.
--- NOTE | 2018-05-28 12:22 | CONSULT ---
Identification - Patient Identification Reason for Psychiatric Consultation: Patient Distress -: Patient is a 22 year old, M admitted on 05/26/18. - MHU Identification Employment Status: Unemployed Hx Psychiatric Hospitalization: Yes History - Objective HPI: Psychiatry is asked to see this 22 y.o. single, white, drug addicted ( methamphetamine, opioids, cannabis, alcohol) male with a history of unspecified bipolarity, who is currently hospitalized on the medical service secondary to an infected jaw related to intravenous drug misuse. The patient is reportedly unhappy with his psychiatric medications, specifically gabapentin and Depakote, and has been refusing them so far during this admission. The patient is well- known to me from a [facility] admission in February of 2018 related to agitated, threatening behavior and alleged SI at that time. Please refer to this clinician's psychiatric H&P dated 03/02/18 for further psychosocial history. The patient denies SI or HI at this time and has not demonstrated dangerousness to self or others, however, he has threatened to leave the hospital AMA at least once since being on [address] [place] [address]. Today, the patient is found in his room, accompanied by his girlfriend, Tatiana. He informs me that his moods have been "shit" and he would like to discuss a medicine change. "It's really my anxiety that's been the worst par of it." Following his [facility] stay in February, he was seeing bone crusher Gerson Villalpando at the [facility]. He self-discontinued both his psych meds and suboxone therapy and returned to significant illicit drug use over the remainder of the fall. He reports that he has a plan to go to inpatient rehab at [facility] in [place], [place] following discharge from the hospital and thereafter he will move with Tatiana to [place] , where she apparently has family. "I need to get off this stuff and get a job. " He tends not to get along well with his mother and hopes the move will give them some space to resolve their differences. Past psychiatric med trials have included Depakote, clonidine, gabapentin, mirtazapine and trazodone. Ziyad is offered quetiapine as an option and agrees to a trial of this. He has no other complaints, other than severe pain in his swollen jaw. Exam Appearance: Thin Framed Hygiene: Normal Grooming: Disheveled Psychomotor Activities: Normal Exhibits Abnormal Movement: No Attitude and Relatedness: Cooperative Eye Contact: Good - Speech Quality: Unpressured Latencies: Normal Quantity: Appropriate Patient's Decription of Mood: "Anxious" Observed Affect: Constricted Affect Consistent with: Dysphoria Patient's Thought Process: Coherent Thought Content: No Passive Wish, No Suicidal Planning, No Homicidal Ideation, No Paranoid Ideation Experiencing Hallucinations: No, Sensorium is Clear Type of Hallucinations: Visual: No, Auditory: No, Command: No Level of Consciousness: Alert Orientation: Yes Intact, Yes Orientated to Time, Yes Orientated to Place, Yes Orientated to Person Impulse Control: Tenuous Insight and Judgement: Fair Impression - Impression Clinical Impression: 22 y.o. single, white, drug addicted (methamphetamine, opioids, cannabis, alcohol) male with a history of unspecified bipolarity, who is currently hospitalized on the medical service secondary to an infected jaw related to intravenous drug misuse, seen for psychiatric med management. Inpatient DSM-V Dx: F31.9 Merits Inpatient Hospitalization: No MHU: Problem List - Patient Problems (1) Bipolar disorder, unspecified Current Visit: Yes Status: Acute Priority: Medium Code(s): F31.9 - BIPOLAR DISORDER, UNSPECIFIED SNOMED Code(s): 58954664 Comment: - Was previously on Depakote, but stopped when he started using again; he did not feel as though this was effective and was not happy with previous psychiatric care at [facility] Psych consult for medication management Plan - Treatment Plan Treatment Plan: We will discontinue gabapentin and Depakote and offer a trial of quetiapine 50mg PO BID. Psychiatry will continue to follow. We support referral to inpatient substance abuse treatment following medical stabilization. Continued Medication Management: Different Medication Medications: Current Medications Acetaminophen (Tylenol Tab*) 650 mg PO Q6H PRN PRN Reason: FEVER/PAIN Clonidine HCl (Catapres Tab*) 0.1 mg PO Q6H [facility] Last Admin: 05/28/18 08:42 Dose: 0.1 mg Divalproex Sodium (Depakote Er Tab(*)) 1,000 mg PO BEDTIME [facility] Last Admin: 05/27/18 21:00 Dose: Not Given Gabapentin (Neurontin Cap(*)) 600 mg PO BID [facility] Last Admin: 05/28/18 08:59 Dose: Not Given Heparin Sodium (Porcine) (Heparin Flush Picc/Ml/Cvc(*)) 1 ml FLUSH 0600,1800 [facility]; Protocol Last Admin: 05/28/18 06:03 Dose: Not Given Hydromorphone HCl (Dilaudid Inj1s*) 1.5 mg IV SLOW PU Q2H PRN PRN Reason: PAIN Last Admin: 05/28/18 08:42 Dose: 1.5 mg Piperacillin Sod/Tazobactam (Sod 3.375 gm/ Sodium Chloride) 100 mls @ 25 mls/ hr IVPB Q8H [facility] Last Admin: 05/28/18 08:42 Dose: 25 mls/hr Vancomycin HCl 1,000 mg/ (Sodium Chloride) 250 mls @ 166.667 mls/hr IVPB Q8H [facility] Last Admin: 05/28/18 06:45 Dose: 166.667 mls/hr Ketorolac Tromethamine (Toradol Inj*) 15 mg IV PUSH Q6H PRN PRN Reason: PAIN Last Admin: 05/28/18 02:10 Dose: 15 mg Loperamide HCl (Imodium Cap*) 2 mg PO .SEE DIRECTIONS PRN PRN Reason: DIARRHEA Nicotine (Nicotine Patch 7 Mg/24 Hr*) 1 patch TRANSDERM DAILY [facility] Last Admin: 05/28/18 08:59 Dose: Not Given Ondansetron HCl (Zofran Inj*) 4 mg IV Q6H PRN PRN Reason: NAUSEA Pharmacy Consult (Zosyn Per Pharmacy*) 1 note FOLLOW UP .ZOSYN PER PHARMACY [facility] Pharmacy Consult (Vancomycin Per Pharmacy*) 1 note FOLLOW UP . PRN PRN Reason: PER PROTOCOL Pharmacy Profile Note (Nicotine Patch Removal Note*) 1 note FOLLOW UP 2100 [facility] Last Admin: 05/27/18 21:00 Dose: Not Given - Discharge Plan Discharge Plan: Drug/Alcohol Rehab
[2018-05-28] MEDS: QUEtiapine TAB* 25 MG PO SCH ×2 (14:05→20:10)
--- NOTE | 2018-05-28 18:26 | CONSULT ---
Consult Consult: INPATIENT PAIN CONSULTATION Miguel Bautista is a 22 year old with a medical history for drug abuse that began when he was 12. He has been abusing heroin since about that time. He has tried to get sober on several occasions but it has never stuck. He was last treated by [facility] and was on Suboxone 12/18 twice a day. He wasn't able to stick with the program and went back to IV heroin and methamphetamine use. He came to the hospital on May 26 with swelling in his left cheek. He was admitted and started on IV antibiotics. Apparently he went off his psychiatric meds as well as doing heroin/meth. He has been on IV dilaudid to control his pain since he was admitted. I am asked to see him. PAST MEDICAL HISTORY: Bipolar disease, polysubstance abuse, Hep C+, ADHD Allergies Allergy/AdvReac Type Severity Reaction Status Date / Time No Known Allergies Allergy Verified 05/26/18 19:56 Current Medications Acetaminophen (Tylenol Tab*) 650 mg PO Q6H PRN PRN Reason: FEVER/PAIN Clonidine HCl (Catapres Tab*) 0.1 mg PO Q6H [facility] Last Admin: 05/28/18 14:05 Dose: 0.1 mg Heparin Sodium (Porcine) (Heparin Flush Picc/Ml/Cvc(*)) 1 ml FLUSH 0600,1800 [facility]; Protocol Last Admin: 05/28/18 17:20 Dose: Not Given Hydromorphone HCl (Dilaudid Inj1s*) 1.5 mg IV SLOW PU Q2H PRN PRN Reason: PAIN Last Admin: 05/28/18 15:58 Dose: 1.5 mg Piperacillin Sod/Tazobactam (Sod 3.375 gm/ Sodium Chloride) 100 mls @ 25 mls/ hr IVPB Q8H [facility] Last Admin: 05/28/18 16:41 Dose: 25 mls/hr Vancomycin HCl 1,000 mg/ (Sodium Chloride) 250 mls @ 166.667 mls/hr IVPB 0200, 0800,1400,2000 [facility] Last Admin: 05/28/18 14:06 Dose: 166.667 mls/hr Ketorolac Tromethamine (Toradol Inj*) 15 mg IV PUSH Q6H PRN PRN Reason: PAIN Last Admin: 05/28/18 02:10 Dose: 15 mg Lactobacillus Rhamnosus (Lactobacillus Acidophilus*) 1 tab PO BID [facility] Loperamide HCl (Imodium Cap*) 2 mg PO .SEE DIRECTIONS PRN PRN Reason: DIARRHEA Nicotine (Nicotine Patch 7 Mg/24 Hr*) 1 patch TRANSDERM DAILY [facility] Last Admin: 05/28/18 08:59 Dose: Not Given Ondansetron HCl (Zofran Inj*) 4 mg IV Q6H PRN PRN Reason: NAUSEA Pharmacy Consult (Zosyn Per Pharmacy*) 1 note FOLLOW UP .ZOSYN PER PHARMACY [facility] Pharmacy Consult (Vancomycin Per Pharmacy*) 1 note FOLLOW UP . PRN PRN Reason: PER PROTOCOL Pharmacy Profile Note (Nicotine Patch Removal Note*) 1 note FOLLOW UP 2100 [facility] Last Admin: 05/27/18 21:00 Dose: Not Given Pharmacy Profile Note (Vancomycin Trough Check) 1 note FOLLOW UP 1330 [facility] Stop: 05/29/18 13:31 Quetiapine Fumarate (Seroquel Tab*) 50 mg PO BID [facility] Last Admin: 05/28/18 14:05 Dose: 50 mg SOCIAL HISTORY: lives with his mother. Doesn't work. Denies alcohol use. Smokes 1ppd. Smokes marijuana. Vital Signs Temp Pulse Resp BP Pulse Ox 98.4 F 60 16 110/60 100 05/28/18 15:14 05/28/18 15:14 05/28/18 15:58 05/28/18 15:14 05/28/18 15:14 EXAM: HEENT: Swelling over left cheek EXTREMITIES: Some scarring over arms NEUROLOGIC: Alert and oriented. Moves all extremities ASSESSMENT: Left cheek abcess History of IVDA PLAN: I don't think it is a good idea to give IV pain medications to an IV drug abuser. I offered to switch him to PO Methadone, 15 mg TID. He said he would sign out AMA if I did this. I think methadone would be the best option as he did not like Suboxone. I can return if needed.
[2018-05-28] MEDS: Lactobacillus Acidophilus* 1 TAB PO SCH (20:10)
[2018-05-28] MEDS: Nicotine Patch Removal NOTE FOLLOW UP SCH (21:28)
[2018-05-29] MEDS: HYDROmorphone INJ1* 1 MG/ML SYRINGE IV SLOW PU PRN ×2 (00:49→08:27)
[2018-05-29] MEDS: Vancomycin(*) 1,000 MG in NS 0.9% 250 ML* 250 ML IVPB SCH ×2 (01:42→08:27)
[2018-05-29] MEDS: ZOSYN 3.375 GM Q8H per EXTENDED INFUSION IVPB SCH ×4 (02:51→10:25)
[2018-05-29] MEDS: cloNIDine TAB* 0.1 MG PO SCH ×2 (02:53→08:27)
[2018-05-29 07:38] LABS: ABS Basophils 0.1 10^3/ul (0-0.2); ABS Eosinophils 0.4 10^3/ul (0-0.6); ABS Lymphocytes 1.8 10^3/ul (1.0-4.8); ABS Monocytes 0.4 10^3/ul (0-0.8); ABS Neutrophils 5.9 10^3/ul (1.5-7.7); ABS Nucleated RBC 0 10^3/ul; Eosinophil % 4.2 %; Hematocrit 41 % (42-52); Hemoglobin 14.3 g/dl (14.0-18.0); Mean Corpuscular HGB Conc 34 g/dl (31-36); Mean Corpuscular Hemoglobin 31 pg (27-31); Mean Corpuscular Volume 89 fL (80-94); Mean Platelet Volume 6.9 fL (7.4-10.4); Nucleated Red Blood Cells % 0.1; Platelet Count 287 10^3/ul (150-450); Red Blood Count 4.65 10^6/ul (4.00-5.40); Red Cell Distribution Width 13 % (10.5-15); White Blood Count 8.5 10^3/ul (3.5-10.8)
[2018-05-29 07:56] LABS: BUN/Creatinine Ratio 6.2 (8-20); Calcium 9.3 mg/dL (8.6-10.3); EGFR Non-African American 95.1 (>60); Potassium 4.1 mmol/L (3.5-5.0)
[2018-05-29] MEDS: Lactobacillus Acidophilus* 1 TAB PO SCH (08:27)
[2018-05-29] MEDS: QUEtiapine TAB* 25 MG PO SCH (08:27)
[2018-05-29] MEDS: Nicotine PATCH 7 MG/24 HR* PATCH TRANSDERM SCH (08:28)
[2018-05-29 12:49] VITALS: BP 129/63
[2018-05-29] MEDS ORDERED: Vancomycin Trough Check NOTE FOLLOW UP ONE (13:30)
--- NOTE | 2018-05-29 22:05 | DS ---
CC: [facility] * DISCHARGE SUMMARY: DATE OF ADMISSION: 05/26/18 DATE OF DISCHARGE: 05/29/18 PRIMARY CARE PROVIDER: [facility]. MY ATTENDING WHILE IN THE HOSPITAL: Dr. Anel Khan.* (DICTATED BY VLADISLAV HUNG) PRIMARY DISCHARGE DIAGNOSES: 1. Polysubstance abuse with methamphetamines, opioids, alcohol, tobacco, and marijuana. 2. Facial cellulitis with phlegmon. SECONDARY DISCHARGE DIAGNOSES: 1. Bipolar disorder. 2. Attention deficit hyperactivity disorder. 3. Prior hepatitis C infection, status post reported treatment. STUDIES DONE WHILE IN THE HOSPITAL: Maxillofacial CT from 05/26/18 read as prominent left facial soft tissue swelling consistent with cellulitis. No soft tissue or periodontal abscess identified. Electrocardiogram from 05/26/18 shows normal sinus rhythm, normal axis, minimal ST segment elevation in II, III and aVF, early repolarization in V2 and V3. No other abnormalities. No blocks or hypertrophy. QTc of 425, rate of 85. MEDICATIONS AT DISCHARGE: 1. Tylenol 650 mg p.o. q.6 hours as needed. 2. Clindamycin 300 mg p.o. 4 times daily for 10 days. 3. Clonidine 0.1 mg p.o. every 6 hours. 4. Ibuprofen 600 mg p.o. q.6 hours as needed. 5. Lactobacillus 1 tab p.o. b.i.d. 6. Loperamide 2 mg p.o. after each bowel movement. 7. Methadone 15 mg p.o. t.i.d. for 3 days. 8. Seroquel 50 mg p.o. b.i.d. Medications discontinued at discharge: 1. Gabapentin. 2. Depakote. HOSPITAL COURSE: This is a brief summary of the patient's presentation. For more details, please see the history and physical from Dr. Ramy Saeed on . In brief, the patient is a 22-year-old male with past medical history significant for the above, who presented to the emergency department after being admitted to this institution for aggressive behavior in late 2018 and being discharged on gabapentin and Depakote for mood stabilization. The patient , at that time, was off of all medications. The patient has been following up with [facility] and was started on Suboxone therapy, but he stated this made him feel poorly. The patient then relapsed into using significant amount of heroin and methamphetamine. Due to scratching induced by his methamphetamine, he developed scabs all over his body, particularly one his face, which began to get worse several days before he came in. The patient was admitted to the hospital with a slight temperature, tachycardia, elevated CRP, and leukocytosis. The patient was started on broad-spectrum antibiotics and was given a fluid bolus. The patient never had hypotension. The patient's tachycardia improved as did his temperature. The patient was started on clonidine for treatment of withdrawal. The patient was seen in consultation by Dr. Artie Chilel of Infectious Disease, who believes that there was a possible phlegmon in his cheek, with no discernible abscess or culturable collection. The patient's blood cultures were negative. The patient was started on Zosyn and vancomycin, which was to be continued for 3 days. The patient was seen in consultation by Dr. Virgilio Gray of Psychiatry, who recommended that the patient be started on Seroquel for mood stabilization, which the patient was agreeable with. He was started on Seroquel 50 mg p.o. b.i.d., which he tolerated well. The patient was also seen in consultation by Dr. Gopi Farnsworth of Pain Management, who recommended that the patient be started on methadone for acute pain until he is able to check into rehab for detoxification, which was the plan. The patient was initially planned to go to [facility] in [place], but they had no beds on the day of his discharge. The patient was informed of other options for inpatient rehab. The patient stated that he did not want to go to inpatient rehab, he wants to stay at home for 2 days and that he is willing to take methadone. The patient, while in the hospital, was on a significant dose of IV Dilaudid at 1.5 mg every 2 hours due to his significant resistance due to his IV drug abuse. Whenever there was discussion made to taper discontinue his Dilaudid, he became angry and violent with the staff, though never did any physical harm to any of the staff members. The patient, on 05/29/18, was informed that he was medically stable for discharge and that since his pain had decreased, IV Dilaudid would be discontinued and he would be transitioned to methadone until he is able to check into inpatient rehab. The patient was amenable to this and was stable and amenable for discharge on 05/29/18, with the plan of going to inpatient detoxification on 06/01/18. PHYSICAL EXAM ON THE DAY OF DISCHARGE: General: The patient is a 22-year-old male with prominent left facial swelling, who otherwise appears stated age. Vital Signs: At the time of discharge, temperature 98.1, pulse rate 57, respiratory rate 16, oxygen saturation 100% on room air, blood pressure 129/63. HEENT: Head normocephalic, atraumatic. Sclerae anicteric. No conjunctival injection. Nasal mucosa moist. Oral mucosa moist. No pharyngeal erythema, discharge or exudate. Neck: Supple, nontender. No lymphadenopathy. No carotid bruits auscultated. No JVD. Cardiac: Regular rate and rhythm. No clicks, murmurs, gallops, or rubs. Pulses are 2+ in the bilateral dorsalis pedis , posterior tibialis, and radial areas. Respiratory: Clear to auscultation bilaterally. No wheezes, rales or rhonchi. Good air exchange bilaterally. Abdomen: Soft, nontender, nondistended. Bowel sounds present and normoactive in all 4 quadrants. No hepatosplenomegaly. No abdominal bruits auscultated. No hepatojugular reflux. Genitourinary: No suprapubic or CVA tenderness. Skin : Scabs diffusely over body. Single scab on face with scant amount of drainage and receding area of erythema surrounding. Neuro: Cranial nerves II through XII are intact. No focal deficits. Alert and oriented x3. Psychiatric : The patient is aloof, but otherwise pleasant and cooperative on the day of discharge. DISCHARGE PLAN: The patient will be discharged to home to live with his mother until he is able to go to inpatient rehab on Friday. The patient has been provided with the facilities in the area. The patient, if needed, should follow up with [facility] for support services, which he has already been established with. The patient has been given clonidine, scheduled to help manage his withdrawal until he is able to go into rehab and possibilities in rehab. The patient was given methadone for acute pain and management of opioid withdrawal as recommended by Dr. Farnsworth of Acute Pain Control. If the patient is unable to check into rehab on Friday, the patient should follow up with [facility] and discuss other options for ongoing management of his opioid withdrawal. The patient was previously on Suboxone and did not feel well on it. The patient will be on another 10 days of clindamycin 300 mg 4 times daily for his facial cellulitis, which is improving. The patient was found to be hep C antibody positive while in the hospital; however, he has previously been treated for hepatitis C per his report, although he is at risk for reinfection. A quantitative sample was not able to be processed, so repeat quantitative hepatitis C should be drawn at some point and the patient should be treated again for hepatitis C if his initial treatment was unsuccessful or if he has contracted hepatitis C again. The patient should return to the hospital for alarming symptoms such as uncontrollable pain, passing out, chest pain, high fevers or other alarming symptoms. The patient, during this hospitalization, was frequently agitated and threatening to leave. The patient was anxious to leave on 05/29/18 despite the nonoptimal circumstances of his discharge. The importance of him following up with substance abuse services on Friday were stressed to the patient and his family. The patient should engage in activities as tolerated and have a heart-healthy diet without caffeine. TIME SPENT: Approximately 75 minutes were spent on the discharge of this patient, 45 of which was spent [id number] with the patient obtaining history and physical and discussing treatment plan. VLADISLAV HUNG [id number]/SUDHA #: [id number] YUVAL
== END 2018-05-29 13:45 | disposition home or self-care (01) | DRG 383 ==
LOC: ED 19:49 → MED 23:31
PROVIDERS: ADMIT Internal Medicine; ATTEND Internal Medicine
DX: L03.211 Cellulitis of face (principal); L02.01 Cutaneous abscess of face; F31.9 Bipolar disorder, unspecified; F90.9 Attention-deficit hyperactivity disorder, unspecified type; F11.10 Opioid abuse, uncomplicated; F12.10 Cannabis abuse, uncomplicated; F10.10 Alcohol abuse, uncomplicated; Y90.0 Blood alcohol level of less than 20 mg/100 ml; F17.210 Nicotine dependence, cigarettes, uncomplicated; F15.10 Other stimulant abuse, uncomplicated; Z79.899 Other long term (current) drug therapy; Z86.19 Personal history of other infectious and parasitic diseases; Z88.8 Allergy status to other drugs, medicaments and biological substances; Z82.49 Family history of ischemic heart disease and other diseases of the circulatory system
CPT/HCPCS: 36415; 70487; 80048; 80053; 80074; 80202; 81003; 83605; 85025; 85610; 85730; 86140; 86703; 87040; 87522; 93005; 99283; A9270-GY; J1170; J1885; J2543; J3370; Q9967

== ENCOUNTER 2018-09-19 15:48 | Emergency (ER) | payer OTHER ==
--- NOTE | 2018-09-19 16:41 | ED ---
Medical Screening - HPI Summary HPI Summary: This patient is a 23 year old male presenting to [facility] with a chief complaint of medical screening exam for substance use. The patient denies abdominal pain and calf pain. The patients reports Hx of ADHD, anxiety, depression. 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" PMH/Surg Hx/FS Hx/Imm Hx Endocrine/Hematology History: Denies: Hx Diabetes, Hx Thyroid Disease Cardiovascular History: Denies: Hx Hypertension Respiratory History: Denies: Hx Asthma, Hx Chronic Obstructive Pulmonary Disease (COPD) GI History: Denies: Hx Ulcer Sensory History: Denies: Hx Contacts or Glasses, Hx Hearing Aid Opthamlomology History: Denies: Hx Contacts or Glasses Neurological History: Reports: Other Neuro Impairments/Disorders - hx multiple concussions Psychiatric History: Reports: Hx Anxiety, Hx Attention Deficit Hyperactivity Disorder, Hx Inpatient Treatment - [place] [facility] Hx Community Mental Health Tx , Hx Bipolar Disorder, Hx of Violent Episodes Against Others, Hx Substance Abuse , Other Psychiatric Issues/Disorders Denies: Hx Eating Disorder, Hx Depression, Hx Panic Disorder, Hx Post Traumatic Stress Disorder, Hx Schizophrenia, Hx Suicide Attempt - Surgical History Surgery Procedure, Year, and Place[place] [facility] [place] Hx Anesthesia Reactions: No Infectious Disease History: Reports: Hx Hepatitis Denies: Hx Clostridium Difficile, Hx Human Immunodeficiency Virus (HIV), Hx of Known/Suspected MRSA, Hx Shingles, Hx Tuberculosis, Hx Known/Suspected VRE, Hx Known/Suspected VRSA, History Other Infectious Disease - Family History Known Family History: Positive: Hypertension, Diabetes - Social History Alcohol Use: Rare Substance Use Type: Reports: Cocaine, Heroin, Marijuana, Synthetic Drugs, Prescribed Substance Use Comment - Amount & Last Used: 05/26/18 Smoking Status (MU): Heavy Every Day Tobacco Smoker Type: Cigarettes Amount Used/How Often: 1 PPD Length of Time of Smoking/Using Tobacco: 5+ years Have You Smoked in the Last Year: Yes Review of Systems Negative: Abdominal Pain Positive: Other - Denies calf pain All Other Systems Reviewed And Are Negative: Yes Physical Exam - Summary Physical Exam Summary: Appearance: Ill-appearing, moderate pain distress, well-nourished Skin: Warm, color reflects adequate perfusion, dry Head: Normal Head/Face inspection, atraumatic Eyes: Conjunctiva clear ENT: Normal inspection Neck: Supple, no nodes, no JVD Respiratory: Lungs clear, normal breath sounds, no respiratory distress Cardio: RRR, No murmur, pulses normal, brisk capillary refill Abdomen: Soft, nontender Bowel sounds: Present Musculoskeletal: Strength Intact/ROM intact, no calf tenderness, no edema. Psychological: Normal Neuro: Alert, muscle tone normal, no focal deficit Triage Information Reviewed: Yes Vital Signs Reviewed: Yes Course/Dx - Course Course Of Treatment: This patient is a 23 year old male presenting to [facility] with a chief complaint of medical screening exam for substance use. Patient will go home with mother, charge nurse called the mother. Patient will be discharged and follow up at [facility] with Dr. Angélica Williamson. The patient is agreeable with this plan. - Diagnoses Provider Diagnoses: Encounter for medical screening examination Discharge - Sign-Out/Discharge Documenting (check all that apply): Patient Departure - Discharge Patient Received Moderate/Deep Sedation with Procedure: No - Discharge Plan Condition: Stable Disposition: HOME Patient Education Materials: Normal Exam (ED) Referrals: Angélica Williamson MD [Medical Doctor] - Additional Instructions: You have had a medical screening exam for legal blood alcohol. - Attestation Statements Document Initiated by Scribe: Yes Documenting Scribe: Miguel Martin Provider For Whom Scribe is Documenting (Include Credential): Leanne Puentes MD Scribe Attestation: Miguel Amaya scribed for Leanne Puentes MD on 09/19/18 at 1646. Status of Scribe Document: Ready
[2018-09-19 16:45] VITALS: BP 146/98
== END 2018-09-19 16:47 | disposition home or self-care (01) ==
LOC: ED 15:48
DX: Z13.89 Encounter for screening for other disorder (principal); F41.9 Anxiety disorder, unspecified
CPT/HCPCS: 99282

== ENCOUNTER 2019-03-01 02:55 | Observation (INO) | payer OTHER ==
[2019-03-01] MEDS ORDERED: NS 0.9% 1000 ML** 1,000 ML IV ONE (03:02)
[2019-03-01] MEDS ORDERED: Charcoal 50 GM/Sorbitol* 50 GM/240 ML BTL PO ONE (03:06)
--- NOTE | 2019-03-01 03:09 | ED ---
Substance Abuse/Use - HPI Summary HPI Summary: Patient is a 23 y/o M presenting to [facility] via EMS with [facility] after having swallowed a bag of ~0.8 grams of heroin around 0200 03/01/19, 45 minutes prior to arrival. It is reported that he and his girlfriend had gotten into an argument. The patient's girlfriend had threatened to call the rebar fabricator on him ( patient has multiple warrants). Patient had decided to swallow the bag of heroin. Girlfriend subsequently called police. He is unsure if the bag was completely tied off, as he notes that he could taste the heroin when he swallowed the bag. He is alert and oriented x3 and capable of answering questions. Home medications and allergies are reviewed. - History Of Current Complaint Stated Complaint: POSSIBLE OVERDOSE PER EMS Hx Obtained From: Patient, EMS, Other: - [employer] Onset/Duration of Drug/ETOH Abuse: Minutes Ingestion History: Type/Name Of Drug - heroin, Amount Ingested - around 0.8 grams, Approximate Time Of Ingestion - around 0200 03/01/19 Overdose Characteristics: Oral Severity Currently: None Associated Signs And Symptoms: Negative - Allergies/Home Medications Allergies/Adverse Reactions: Allergies Allergy/AdvReac Type Severity Reaction Status Date / Time No Known Allergies Allergy Verified 05/26/18 19:56 PMH/Surg Hx/FS Hx/Imm Hx Endocrine/Hematology History: Denies: Hx Diabetes, Hx Thyroid Disease Cardiovascular History: Denies: Hx Hypertension Respiratory History: Denies: Hx Asthma, Hx Chronic Obstructive Pulmonary Disease (COPD) GI History: Denies: Hx Ulcer Sensory History: Denies: Hx Contacts or Glasses, Hx Hearing Aid Opthamlomology History: Denies: Hx Contacts or Glasses Neurological History: Reports: Other Neuro Impairments/Disorders - hx multiple concussions Psychiatric History: Reports: Hx Anxiety, Hx Attention Deficit Hyperactivity Disorder, Hx Inpatient Treatment - Hx of [facility], Hx Community Mental Health Tx , Hx Bipolar Disorder, Hx of Violent Episodes Against Others, Hx Substance Abuse , Other Psychiatric Issues/Disorders Denies: Hx Eating Disorder, Hx Depression, Hx Panic Disorder, Hx Post Traumatic Stress Disorder, Hx Schizophrenia, Hx Suicide Attempt - Surgical History Surgery Procedure, Year, and Place: RIGHT KNEE, 2008, [facility]. nasal surgery Hx Anesthesia Reactions: No Infectious Disease History: Reports: Hx Hepatitis Denies: Hx Clostridium Difficile, Hx Human Immunodeficiency Virus (HIV), Hx of Known/Suspected MRSA, Hx Shingles, Hx Tuberculosis, Hx Known/Suspected VRE, Hx Known/Suspected VRSA, History Other Infectious Disease - Family History Known Family History: Positive: Hypertension, Diabetes - Social History Alcohol Use: Rare Substance Use Type: Reports: Cocaine, Heroin, Marijuana, Synthetic Drugs, Prescribed Substance Use Comment - Amount & Last Used: 05/26/18 Smoking Status (MU): Heavy Every Day Tobacco Smoker Type: Cigarettes Amount Used/How Often: 1 PPD Length of Time of Smoking/Using Tobacco: 5+ years Have You Smoked in the Last Year: Yes Review of Systems Constitutional: Other - positive - heroin consumption Neurological: Other - negative - AMS All Other Systems Reviewed And Are Negative: Yes Physical Exam - Summary Physical Exam Summary: Appearance: He is somewhat somnolent, easily arousable, answering questions appropriately, and in no acute distress. Well-appearing, Well-nourished, lying in bed comfortably Skin: Warm, dry, no obvious rash Eyes: sclera anicteric, no conjunctival pallor ENT: mucous membranes moist, pharynx appears normal Neck: Supple, nontender Respiratory: Clear to auscultation, no signs of respiratory distress Cardiovascular: Normal S1, S2. No murmurs. Normal distal pulses in tibial and radial bilaterally. Abdomen: Soft, nontender, normal active bowel sounds present Musculoskeletal: Normal, Strength/ROM Intact Neurological: A&Ox3, awake and alert, mentation is normal, speech is fluent and appropriate Psychiatric: affect is normal, does not appear anxious or depressed Triage Information Reviewed: Yes Vital Signs On Initial Exam: Initial Vitals Temp Pulse Resp BP Pulse Ox 100.2 F 115 20 145/89 96 03/01/19 03:02 03/01/19 03:02 03/01/19 03:02 03/01/19 03:02 03/01/19 03:02 Vital Signs Reviewed: Yes Procedures - Sedation Patient Received Moderate/Deep Sedation with Procedure: No Diagnostics - Laboratory Result Diagrams: 03/01/19 03:31 03/01/19 03:31 Lab Statement: Any lab studies that have been ordered have been reviewed, and results considered in the medical decision making process. - EKG 0335 Cardiac Rate: NL - rate of 92 BPM EKG Rhythm: Sinus Rhythm Summary of EKG Findings: NSR at 92 BPM, P waves, QRS complex, and T waves are within normal limits, T waves and intervals are normal, no ischemic changes. This is a normal EKG. This EKG was reviewed and interpreted by Dr. Lemon. Re-Evaluation - Re-Evaluation First Eval Re-Evaluation Time: 03:07 Comment: Poison control was reached, case discussed. They recommend admit for observation for 24 hours unless he manages to pass the baggie and to administer charcoal. Second Eval Re-Evaluation Time: 03:35 Comment: Patient is refusing to drink charcoal. Course/Dx - Course Course Of Treatment: Patient is a 23 y/o M presenting to [facility] via EMS with IPD after having swallowed a bag of ~0.8 grams of heroin around 0200 03/01/19, 45 minutes prior to arrival. He is somewhat somnolent, easily arousable, answering questions appropriately, and in no acute distress. Poison control was reached, case discussed. They recommend admit for observation for 24 hours unless he manages to pass the baggie and to administer charcoal. EKG showed NSR at 92 BPM , P waves, QRS complex, and T waves are within normal limits, T waves and intervals are normal, no ischemic changes.During ED course, patient received fluids. However, the patient refused charcoal. 0406 - Patient's case was discussed with Dr. Khan, Dr. Khan accepts for admission. - Diagnoses Provider Diagnoses: Heroin overdose - Physician Notifications Discussed Care Of Patient With: Anel Khan Time Discussed With Above Provider: 04:06 Instructed by Provider To: Other - 0406 - Patient's case was discussed with Dr. Khan, Dr. Khan accepts for admission. Discharge ED - Sign-Out/Discharge Documenting (check all that apply): Patient Departure - admit - Discharge Plan Condition: Stable Disposition: ADMITTED TO [facility] - Billing Disposition and Condition Condition: STABLE Disposition: Admitted to [facility] - Attestation Statements Document Initiated by Scribe: Yes Documenting Scribe: ANGELICA REED Provider For Whom Scribe is Documenting (Include Credential): RAYMOND LEMON MD Scribe Attestation: ANGELICA Amaya, scribed for RAYMOND LEMON MD on 03/02/19 at 0330. Scribe Documentation Reviewed: Yes Provider Attestation: The documentation as recorded by the scribe, ANGELICA REED accurately reflects the service I personally performed and the decisions made by me, RAYMOND LEMON MD Status of Madalyn Document: Viewed
[2019-03-01 03:42] LABS: ABS Lymphocytes 1.4 10^3/ul (1.0-4.8); ABS Monocytes 0.4 10^3/ul (0-0.8); ABS Neutrophils 4.2 10^3/ul (1.5-7.7); Eosinophil % 0.7 %; Hematocrit 40 % (42-52); Hemoglobin 13.7 g/dL (14.0-18.0); Mean Corpuscular HGB Conc 34 g/dL (31-36); Mean Corpuscular Hemoglobin 29 pg (27-31); Mean Corpuscular Volume 84 fL (80-94); Mean Platelet Volume 6.5 fL (7.4-10.4); Nucleated Red Blood Cells % 0.1; Platelet Count 404 10^3/uL (150-450); Red Blood Count 4.79 10^6 /uL (4.18-5.48); Red Cell Distribution Width 15 % (10-15); White Blood Count 6.1 10^3/uL (3.5-10.8)
[2019-03-01 03:58] LABS: ALT 19 U/L (7-52); AST 22 U/L (13-39); Albumin 4.3 g/dL (3.2-5.2); Albumin/Globulin Ratio 1.2 (1-3); Alkaline Phosphatase 88 U/L (34-104); Anion Gap 7 mmol/L (2-11); BUN/Creatinine Ratio 18.9 (8-20); Blood Urea Nitrogen 20 mg/dL (6-24); CO2 Carbon Dioxide 28 mmol/L (22-32); Calcium 9.8 mg/dL (8.6-10.3); Chloride 104 mmol/L (101-111); EGFR Non-African American 85.1 (>60); Globulin 3.6 g/dL (2-4); Glucose 92 mg/dL (70-100); Potassium 4.1 mmol/L (3.5-5.0); Sodium 139 mmol/L (135-145); Total Protein 7.9 g/dL (6.4-8.9)
[2019-03-01 04:06] LABS: Alcohol < 10 mg/dL (<10)
[2019-03-01] MEDS ORDERED: Acetaminophen TAB* 325 MG PO PRN (04:18)
[2019-03-01] MEDS ORDERED: NS 0.9% 1000 ML** 1,000 ML IV SCH (04:30)
[2019-03-01] MEDS: LORazepam TAB(*) 0.5 MG PO PRN ×2 (08:31→21:13)
[2019-03-01] MEDS: Propranolol TAB* 10 MG PO SCH (08:32)
--- NOTE | 2019-03-01 10:43 | HP ---
CC: Dr. Williamson HISTORY AND PHYSICAL: DATE OF ADMISSION: 03/01/19 PRIMARY CARE PROVIDER: Dr. Angélica Williamson from [facility]. CHIEF COMPLAINT: Brought in by police. HISTORY OF PRESENT ILLNESS: Mr. Bautista is a 23-year-old male with a history of heroin addiction and bipolar disorder, who was brought in to the hospital by the police. Apparently, when they were called to a domestic dispute, on the way when they were approaching the patient's apartment, he was running out of it and away from the police. When he was caught, he told the police that he swallowed the bag of heroin because he did not want to be found with it. The police brought the patient to the emergency department for evaluation. Poison Control was called and recommended observation on library monitor bed for 24 hours until the patient has a bowel movement and expels the heroin bag. The patient here refused to take activated charcoal. He had been basically refusing to talk. When I approached the patient, the patient forces his eyes to be closed. He nodded his head "no" when I asked him if he is going to talk with me. PAST MEDICAL HISTORY: Obtained from medical records include; 1. Polysubstance abuse. 2. Bipolar disease. 3. History of ADHD. 4. History of hepatitis C infection in the past. MEDICATIONS: At home unknown. ALLERGIES: CEFTRIAXONE caused severe itching. FAMILY HISTORY: Mother apparently with heart disease and father healthy, that is per the patient's medical records from the beginning of this year. SOCIAL HISTORY: Unknown history of polysubstance abuse. Otherwise unknown. The patient refuses to answer. REVIEW OF SYSTEMS: The patient refuses to answer. PHYSICAL EVALUATION: GENERAL: The patient is a 23-year-old male, who is lying in bed, crawled in a position. The patient appears in no acute distress. He is alert, eyes closed. Refuses to answer questions. He refuses to cooperate with evaluation. VITAL SIGNS: Blood pressure 151/85, heart rate of 98 and regular, respiratory rate 14, oxygen saturation 98% on room air, temperature of 100.2. HEENT: Head: Atraumatic, normocephalic. Eyes: Pupils are equal, reactive to light at approximately 4 mm. Oropharynx with mucous membranes moist. NECK: Supple. No JVD. No bruits bilaterally. RESPIRATORY: Clear to auscultation bilaterally. CARDIOVASCULAR: Regular rate and rhythm. No murmur. ABDOMEN: Soft and nontender. Bowel sounds present in all 4 quadrants. EXTREMITIES: No edema. Pulses +2 bilaterally. No clubbing or cyanosis. SKIN: On evaluation of the skin, the patient has multiple abrasions, scratches , and excoriations throughout his bilateral upper, lower extremities, and skin. None of them appeared to be infected. NEUROLOGIC: On neuro evaluation, the patient spontaneously moves all 4 extremities without any problem and his face is symmetrical. Otherwise, he does not cooperate with evaluation. DIAGNOSTIC STUDIES/LAB DATA: White blood cell count 6.1, hemoglobin 13.7, hematocrit 41, and platelets of 104. Sodium of 139, potassium 4.1, chloride 104, carbon dioxide 28, BUN 20, creatinine 1.06. Liver functions are unremarkable. Drug screen is pending at the time of dictation. ASSESSMENT AND PLAN: 1. The patient apparently told the police that he swallowed the bag of heroin. I am unsure why he would tell the police that he swallowed a bag of heroin when he wanted to hide that from them to begin with. Nevertheless, he is going to be placed on overnight observation on library monitor bed as recommended by Poison Control. 2. For DVT prophylaxis, the patient is low risk. 3. Due to history of polysubstance abuse, social service liaison is going to be asked to see the patient for evaluation. TIME SPENT: Approximately 40 minutes were spent on evaluation of this patient, more than half of that time was spent [id number] with the patient. [id number]/CPS #: [id number] MTDD
[2019-03-01] MEDS ORDERED: Naloxone* 0.4 MG/ML 1 ML VIAL IV PUSH PRN (10:48)
[2019-03-01] MEDS ORDERED: Ondansetron INJ* 2 MG/ML VIAL IV PRN (10:48)
[2019-03-01 12:19] LABS: Acetaminophen < 15 mcg/mL; Salicylate < 2.50 mg/dL (<30)
[2019-03-01] MEDS ORDERED: cloNIDine TAB* 0.1 MG PO ONE ×2 (12:42→15:51)
--- NOTE | 2019-03-01 18:05 | PN ---
Subjective Date of Service: 03/01/19 Interval History: Patient is feeling poorly, Patient states he feels shaky, is having abdominal pain and diarrhea, F/C, and that these symptoms are getting worse. Patient states this is consistent with previous episodes of opiate withdrawal. Patient denies CP, SOB. Family History: Unchanged from Admission Social History: Unchanged from Admission Past Medical History: Unchanged from Admission Objective Active Medications: Acetaminophen (Tylenol Tab*) 650 mg PO Q4H PRN PRN Reason: PAIN-MILD/TEMP >/= 100.4 Last Admin: 03/01/19 17:42 Dose: 650 mg Sodium Chloride (Ns 0.9% 1000 Ml) 1,000 mls @ 75 mls/hr IV PER RATE [place] Lorazepam (Ativan Tab(*)) 0.5 mg PO BID PRN PRN Reason: ANXIETY Last Admin: 03/01/19 08:31 Dose: 0.5 mg Naloxone HCl (Narcan*) 0.4 mg IV PUSH Q2M PRN PRN Reason: respiratory depression Ondansetron HCl (Zofran Inj*) 4 mg IV Q6H PRN PRN Reason: NAUSEA Propranolol HCl (Inderal Tab*) 10 mg PO DAILY [facility] Last Admin: 03/01/19 08:32 Dose: 10 mg Quetiapine Fumarate (Seroquel Tab*) 25 mg PO BEDTIME [facility] Vital Signs - 8 hr 03/01/19 03/01/19 03/01/19 10:30 11:15 15:15 Temperature 98.2 F 98.3 F Pulse Rate 79 77 Respiratory 17 20 20 Rate Blood Pressure 136/90 135/86 (mmHg) O2 Sat by Pulse 98 100 Oximetry Oxygen Devices in Use Now: None Appearance: Patient is a 23yo male who appears much older than stated age and is sitting in the bed in [facility]. Eyes: No Scleral Icterus, PERRLA Ears/Nose/Mouth/Throat: NL Teeth, Lips, Gums, Clear Oropharnyx, Mucous Membranes Moist Neck: NL Appearance and Movements; NL JVP, Trachea Midline Respiratory: Symmetrical Chest Expansion and Respiratory Effort, Clear to Auscultation Cardiovascular: NL Sounds; No Murmurs; No JVD, RRR, No Edema Abdominal: NL Sounds; No Tenderness; No Distention, No Hepatosplenomegaly Lymphatic: No Cervical Adenopathy Extremities: No Edema, No Clubbing, Cyanosis Skin: No Rash or Ulcers, No Nodules or Sclerosis Neurological: Alert and Oriented x 3, NL Sensation, NL Muscle Strength and Tone , - - CN II-XII intact. Result Diagrams: 03/01/19 03:31 03/01/19 03:31 Assess/Plan/Problems-Billing Assessment: Patient is a 23yo male with poly-substance abuse, here for observation after swallowing a bag of heroin awaiting passage of heroin. - Patient Problems (1) Polysubstance abuse Current Visit: No Status: Acute Code(s): F19.10 - OTHER PSYCHOACTIVE SUBSTANCE ABUSE, UNCOMPLICATED SNOMED Code(s): 177521701 Comment: - Endorses recent use of opiates and Bath-salts - Has been on Suboxone, due to possibility of imminent unintentional overdose, will not resume at this time - Continue clonidine for opiate withdrawal (2) Ingestion of substance Current Visit: Yes Status: Acute Code(s): T65.91XA - TOXIC EFFECT OF UNSP SUBSTANCE, ACCIDENTAL, INIT SNOMED Code(s): 48798963 Comment: - Claims to have swallowed .8g of bagged heroin - Poison control recommends observation until bag passes - Narcan available - Patient refuses Charcoal for detoxification. (3) ADHD Current Visit: No Status: Acute Comment: - Has been on Ritalin in the past, but not recently according to iSTOP - Supportive care only (4) Bipolar disorder, unspecified Current Visit: No Status: Acute Priority: Medium Code(s): F31.9 - BIPOLAR DISORDER, UNSPECIFIED SNOMED Code(s): 57920076 Comment: - Continue Quetiapine 25mg daily - No signs of ion at this time. (5) Hepatitis C Current Visit: No Status: Acute Comment: - Reports that viral load was previously undetectable after treatment. - Hepatitis C Antibody positive, Needs RNA load at some point. (6) DVT prophylaxis Current Visit: No Status: Acute Code(s): LYB6823 - SNOMED Code(s): 583796958 Comment: - Ambulation (7) Full code status Current Visit: No Status: Acute Code(s): Z78.9 - OTHER SPECIFIED HEALTH STATUS SNOMED Code(s): 234861139 Comment: Status and Disposition: Observation pending passage of heroin. Patient is in police custody and will be incarcerated at D/C.
[2019-03-01] MEDS ORDERED: QUEtiapine TAB* 25 MG PO SCH (21:00)
[2019-03-02] MEDS ORDERED: Calcium Carbonate CHEW TAB* 500 MG (TUMS) PO PRN (03:56)
[2019-03-02] MEDS ORDERED: Sucralfate TAB* 1 GM PO ONE (05:16)
[2019-03-02] MEDS ORDERED: Naloxone Nasal Spray* 4 MG/0.1 ML NASAL.SPR INTRANASAL PRN (06:30)
[2019-03-02 08:02] VITALS: BP 119/75
[2019-03-02] MEDS: Propranolol TAB* 10 MG PO SCH (08:07)
[2019-03-02] MEDS: LORazepam TAB(*) 0.5 MG PO PRN (08:07)
[2019-03-02] MEDS ORDERED: Buprenorp/Nalox 8-2 MG FILM SL FILM ONE ×2 (09:48→10:00)
--- NOTE | 2019-03-02 21:28 | DS ---
CC: Dr. Lisha De Souza at [facility] * DISCHARGE SUMMARY: DATE OF ADMISSION: 03/01/19 DATE OF DISCHARGE: 03/02/19 PRIMARY CARE PROVIDER: Dr. Lisha De Souza at [facility]. ATTENDING FOR THIS DISCHARGE SUMMARY: Dr. Enriqueta Duque.* (DICTATED BYREBECA IKM NP) HOSPITAL COURSE: Please refer to admitting H and P on 03/01/19, but in short, Mr. Bautista is a 23-year-old male patient, who was brought to the emergency department by police for ingestion of a bag of heroin. Per the admission H and P, police were called to the patient's apartment for a domestic dispute, when the patient was found running away. When he was caught, he told the police he had swallowed a bag of heroin because he did not want to be found with it. The patient was then brought to the emergency department for evaluation. Poison control was contacted and recommended 24 hours of observation for swallowing the bag of heroin. The patient refused to take activated charcoal, was also refusing to talk, refusing to take part in care and essentially was noncompliant with his evaluation and recommendations. The patient was admitted to observation. He was also disagreeable to telemetry monitoring, but in any case, he did have some periods of somnolence during his admission, but did not have any decompensation. During my examination of the patient on the morning of 03/02/19, which was some 30 hours out from his alleged ingestion which happened at approximately 2 a.m. on 03/01/19. The patient was awake and alert. He was oriented. He was in the shower for more than 1 hour. Law enforcement were present in patient's room for the duration of his visit. It is unclear to me if there were active words or what the circumstances were; however, the patient again was medically stable at that time. He did not pass any pieces of plastic and did not show any signs or symptoms of obstruction. He did, however, complain of some abdominal pain and diarrhea, which did indicate he was likely withdrawing from heroin. We did reach out to poison control who stated that the patient was out of the 24 hour window, did not require any further monitoring and essentially could be discharged with no further intervention required in terms of his ingestion. I did reach out to the [facility] because the patient did ask me about his Suboxone. The patient states that he is supposed to be taking Suboxone 2 times a day. I did speak with the staff at [facility] who did confirm that he does take an 8 mg pill 2 times a day. I did explain to the patient he would have 1 dose before discharge and the patient was released to the custody of the police officers present. REVIEW OF SYSTEMS: The patient stated "I feel like shit," but otherwise denied any acute shortness of breath. No chills. He did state he had some abdominal pain and diarrhea. No urinary complaints. No arthralgias or myalgias and no further constitutional complaints. PHYSICAL EXAMINATION: The patient is a thin pale individual in no acute distress. His vital signs are blood pressure 119/75, heart rate 79, respiratory rate 18, and O2 saturation 100% on room air with a temperature of 98.4. HEENT: The patient is atraumatic and normocephalic. PERRLA. Nonicteric sclerae. There is a scratch underneath the right eye with some scabbing noted. No bleeding, erythema or exudate noted. Oral mucosa is moist. Tongue is midline. Neck: Supple, nontender. No JVD noted. No carotid bruit auscultated. Cardiovascular: S1, S2 present. No murmurs, gallops, or rubs noted. Rate and rhythm are regular. Lungs are clear bilaterally to auscultation with no wheezing, rhonchi, or rales. Abdomen is soft, nontender, nondistended. Positive bowel sounds in all 4 quadrants. is deferred. Musculoskeletal: There is no clubbing, no cyanosis, no edema. Gross motor and sensation are intact. Full range of motion and steady gait. Neurological: Grossly intact. Psychiatric: Anxious, but otherwise appropriate. DIAGNOSTIC STUDIES/LAB DATA: WBCs 6.1, RBCs 4.79, hemoglobin 13.7, hematocrit 40, platelets 404. Sodium 139, potassium 4.1, chloride 104, CO2 of 28, BUN 20, creatinine 1.06, GFR 85.1, glucose 92. Bilirubin 0.40, AST 22, ALT 19, alk phos 88. Total protein 7.9, albumin 4.3, globulin 3.6, albumin-globulin ratio 1.2. Salicylates less than 2.50, acetaminophen level less than 15. Serum alcohol less than 10. Imaging: No imaging available. DISCHARGE DIAGNOSES: 1. Intentional heroin ingestion. 2. Polysubstance abuse. SECONDARY DIAGNOSES: 1. History of attention deficit hyperactivity disorder. 2. History of bipolar disorder. MEDICATIONS FOR DISCHARGE: Include: 1. Seroquel 25 mg p.o. b.i.d. 2. Propranolol 10 mg p.o. daily. 3. Lorazepam 0.5 mg daily as needed. 4. Dextroamphetamine 10 mg extended release 2 caps p.o. daily. 5. Suboxone 8/2 mg 1 sublingual film b.i.d. No changes to his home medications. FOLLOWUPS: The patient was instructed to follow up with [facility] with Dr. Lisha De Souza within the next week to continue his Suboxone and regularly scheduled medications. ACTIVITY: Progress activity as tolerated. DIET: Regular as tolerated. The patient was discharged in stable condition to the custody of law enforcement. All questions were answered. The patient stated his understanding of his discharge instructions, medications and followups. TIME SPENT: Forty minutes on discharge planning. REBECA KIM NP [id number]/CPS #: [id number] YUVAL
== END 2019-03-02 10:40 ==
LOC: ED 02:55 → EEVIPCON 04:18 → MEDTELE 04:18 → MED 05:42
PROVIDERS: ADMIT Internal Medicine; ATTEND Hospitalist
DX: T40.1X2A Poisoning by heroin, intentional self-harm, initial encounter (principal); Y92.9 Unspecified place or not applicable; F41.9 Anxiety disorder, unspecified; F90.9 Attention-deficit hyperactivity disorder, unspecified type; F17.210 Nicotine dependence, cigarettes, uncomplicated; F19.10 Other psychoactive substance abuse, uncomplicated; F31.9 Bipolar disorder, unspecified; Z79.899 Other long term (current) drug therapy; Z86.19 Personal history of other infectious and parasitic diseases; R10.9 Unspecified abdominal pain
CPT/HCPCS: 36415; 80053; 80320; 80329; 85025; 93005; 96361; 96374; 99285; A9270-GY; G0378; G0480; J2405